=== PATIENT | male | born 1930 | race Caucasian/White ===

== ENCOUNTER → 2017-01-07 | Outpatient (CLI) | payer OTHER ==
[~2017-01-07] MED LIST: /TAMS4CA; /WARF25TA; ACET-654 PO; AMIO400T PO; ASPI1TAB PO; CARD40TA PO; COLA100C2; COMBVENT; DIGO0.12 PO; ELIQ2.5T PO; FURO20TA2 PO; MILKSUS; MIRA3350 PO; MIRALEX; MULTIVIT; NORV5TAB; PRIN5TAB; SIMV80TA; TERA2CAP3 PO; TYLENOL #3; WATETAB PO; saline nasal spray; vitamin d
--- NOTE | 2017-01-07 15:27 | REP ---
CT of the chest without IV contrast: Comparison is 05/28/2014. There is a moderate right pleural effusion, slightly smaller in size than on the comparison study. There is atelectasis of the right lung adjacent to the pleural effusion. There is focal calcified pleural plaque posteromedially in the right upper lobe and there is calcified pleural plaque medially in the superior segment of the left lower lobe. These are unchanged from the prior study. There is a focal noncalcified pleural plaque anterolaterally in the left upper lobe, unchanged. There is a focal noncalcified pleural plaque along the dome of the right hemidiaphragm, unchanged. There is a 4 mm nodule at the inferior tip of the lingula, unchanged. The right and left lobes of the thyroid are enlarged and I suspect there are multiple nodules in both lobes of the thyroid. Thyroid ultrasound could further evaluate. The previous pericardial effusion has resolved. There is a large subcarinal node measuring up to 15 mm short axis (12 mm previously). There is a 19 mm subcapsular cyst laterally in the dome of the liver, unchanged. There is a multilobed cyst inferoanteriorly in the in the right lobe of the liver measuring 6 cm in diameter (5 cm previously). The gallbladder is not visualized. The unenhanced pancreas and spleen are unremarkable. I suspect there is bilateral renal cortical atrophy. There are bilateral renal cortical cysts. No hydronephrosis. Signed by Lui Ho MD 01/07/2017 03:18 P
== END ==
LOC: M RAD 14:22
PROVIDERS: ATTEND Internal Medicine
DX: J84.10 Pulmonary fibrosis, unspecified (principal)

== ENCOUNTER 2017-06-13 10:15 | Emergency (ER) | payer MEDICARE, OTHER ==
[~2017-06-13] VITALS: Ht 175.3 cm; Wt 75.0 kg
[~2017-06-13 10:15] MED LIST changes: -ACET-654 PO; +ACET1TAB17 PO
[2017-06-13] MEDS ORDERED: FLUO10CA9 (10:32)
[2017-06-13] MEDS ORDERED: OXYB5TAB (10:32)
[2017-06-13] MEDS ORDERED: TEMA15CA2 (10:32)
[2017-06-13] MEDS ORDERED: ATOR1TAB19 (10:32)
[2017-06-13] MEDS ORDERED: CALC1CAP31 (10:32)
[2017-06-13 11:07] LABS: BASO % 0.4 % (0.0-1.0); EOS # 0.1 K/mm3 (0.0-0.50); EOS % 2.3 % (0.0-3.0); LARGE UNSTAINED CELL # 0.1 K/mm3 (0.0-0.4); LARGE UNSTAINED CELL % 2.4 % (0.0-4.0); LYMPH # 0.9 K/mm3 (1.5-4.5); LYMPH % 17.3 % (24.0-44.0); MEAN CORPUSCULAR HEMOGLOBIN 31.5 pg (27.0-33.0); MEAN CORPUSCULAR HGB CONC 33.4 g/dl (32.0-36.5); MEAN CORPUSCULAR VOLUME 94.2 fl (80.0-96.0); MONO # 0.3 K/mm3 (0.0-0.8); MONO % 5.5 % (0.0-5.0); NEUTROPHILS # 3.4 K/mm3 (1.8-7.7); PLATELET COUNT, AUTOMATED 159 k/mm3 (150-450); RED CELL DISTRIBUTION WIDTH 14.2 % (11.5-14.5); WHITE BLOOD COUNT 4.7 K/mm3 (4.0-10.0)
--- NOTE | 2017-06-13 11:12 | REP ---
CHEST: AP portable view of the chest is performed and compared to prior study of 01/21/2015. There are chronic pleural and parenchymal opacities on the right which appear essentially unchanged. Interstitial opacities in the left base are unchanged. There is cardiomegaly. There is a calcified tortuous aorta. IMPRESSION: Cardiomegaly and chronic lung opacities with no definite acute changes. Signed by Lui Pinto MD 06/13/2017 01:13 P
[2017-06-13 11:33] LABS: ALBUMIN/GLOBULIN RATIO 0.83 (1.00-1.93); BILIRUBIN,DIRECT 0.4 MG/DL (0.0-0.2); BILIRUBIN,TOTAL 1.1 MG/DL (0.2-1.0); CALCIUM LEVEL 9.2 MG/DL (8.8-10.2); CREATININE FOR GFR 3.55 MG/DL (0.70-1.30); GLOMERULAR FILTRATION RATE 17.5 (>35); TOTAL PROTEIN 6.6 GM/DL (6.4-8.2)
[2017-06-13 11:43] LABS: DIGOXIN LEVEL 0.5 NG/ML (0.5-2.0)
[2017-06-13 12:21] VITALS: BP 127/64
--- NOTE | 2017-06-14 08:56 | ECGEPIP ---
Stationary ECG Study [facility] - ED Test Date: 2017-06-13 Pat Name: SHELLIE GILL Department: Room: - Gender: M Nail Specialist: JT : [id number] Requested By: Anahy Mcmahan Order Number: [id number] Reading MD: Anahy Mcmahan Measurements Intervals [place] Rate: 82 P: [place]: 0 QRS: 46 QRSD: 96 T: 61 QT: 383 QTc: 450 Interpretive Statements ATRIAL FIBRILLATION ABNORMAL RHYTHM ECG [id number] ABNORMALITY DECREASED RATE 05/24/14 Electronically Signed On 06-14-2017 8:56:25 EDT by Anahy Mcmahan
== END 2017-06-13 15:54 | disposition home or self-care (01) ==
LOC: M ED 10:15
DX: R53.81 Other malaise (principal); I51.9 Heart disease, unspecified; I10 Essential (primary) hypertension; I51.7 Cardiomegaly; R94.31 Abnormal electrocardiogram [ECG] [EKG]; Z79.899 Other long term (current) drug therapy; Z88.0 Allergy status to penicillin

== ENCOUNTER → 2017-06-23 | Outpatient (REF) | payer MEDICARE, OTHER ==
[~2017-06-23] MED LIST changes: +ATOR1TAB19; +CALC1CAP31; +FLUO10CA9; +OXYB5TAB; +TEMA15CA2
== END ==
LOC: M LAB REF 13:12
PROVIDERS: ATTEND Internal Medicine Nephrology
DX: I48.2 Chronic atrial fibrillation (principal)

== ENCOUNTER → 2017-07-28 | Outpatient (REF) | payer MEDICARE, OTHER ==
[2017-07-28 15:26] LABS: FREE T4 1.11 NG/DL (0.76-1.46)
== END ==
LOC: M LAB REF 13:52
PROVIDERS: ATTEND Internal Medicine Nephrology
DX: N18.4 Chronic kidney disease, stage 4 (severe) (principal); E04.9 Nontoxic goiter, unspecified

== ENCOUNTER → 2017-10-18 | Outpatient (REF) | payer MEDICARE, OTHER | LOC: M LAB REF 18:54 | PROVIDERS: ATTEND Surgery | DX: D03.59 Melanoma in situ of other part of trunk (principal); C44.622 Squamous cell carcinoma of skin of right upper limb, including shoulder; C44.519 Basal cell carcinoma of skin of other part of trunk ==

== ENCOUNTER → 2017-11-01 | Outpatient (REF) | payer MEDICARE, OTHER | LOC: M LAB REF 18:09 | PROVIDERS: ATTEND Surgery | DX: C44.519 Basal cell carcinoma of skin of other part of trunk (principal) ==

== ENCOUNTER → 2017-11-23 | Outpatient (CLI) | payer MEDICARE, OTHER | LOC: M RAD 08:11 | DX: R94.5 Abnormal results of liver function studies (principal); K76.89 Other specified diseases of liver; N28.1 Cyst of kidney, acquired | CPT/HCPCS: 76705 ==

== ENCOUNTER → 2017-12-01 | Outpatient (REF) | payer MEDICARE, OTHER | LOC: M LAB REF 18:58 | DX: C44.622 Squamous cell carcinoma of skin of right upper limb, including shoulder (principal) | CPT/HCPCS: 88305 ==

== ENCOUNTER → 2018-01-31 | Outpatient (REF) | payer MEDICARE, OTHER | LOC: M LAB REF 16:22 | DX: D48.5 Neoplasm of uncertain behavior of skin (principal) | CPT/HCPCS: 88305 ==

== ENCOUNTER → 2018-02-07 | Outpatient (REF) | payer MEDICARE, OTHER ==
[2018-02-08 12:05] LABS: HEPATITIS B SURFACE ANTIBODY NEGATIVE (POSITIVE)
[2018-02-08 12:07] LABS: HEPATITIS B SURFACE ANTIGEN NEGATIVE (NEGATIVE)
[2018-02-08 12:10] LABS: HEPATITIS C VIRUS ABY INDEX 0.1 INDEX (<0.8)
[2018-02-08 12:12] LABS: HEPATITIS B CORE ANTIBODY IGM NEGATIVE (NEGATIVE)
== END ==
LOC: M LAB REF 17:15
DX: N18.5 Chronic kidney disease, stage 5 (principal)
CPT/HCPCS: 86706

== ENCOUNTER → 2018-08-07 | Outpatient (CLI) | payer MEDICARE, OTHER | LOC: M SMT 14:36 | DX: J90 Pleural effusion, not elsewhere classified (principal); I51.7 Cardiomegaly | CPT/HCPCS: 71046 ==

== ENCOUNTER → 2018-10-11 | Outpatient (REF) | payer MEDICARE, OTHER ==
[2018-10-13 09:37] LABS: HEPATITIS B CORE ANTIBODY IGM NEGATIVE (NEGATIVE); HEPATITIS B SURFACE ANTIBODY NEGATIVE (POSITIVE); HEPATITIS B SURFACE ANTIGEN NEGATIVE (NEGATIVE); HEPATITIS C VIRUS ABY INDEX 0.1 INDEX (<0.8)
== END ==
LOC: M LAB REF 16:47
DX: N18.5 Chronic kidney disease, stage 5 (principal)
CPT/HCPCS: 86706

== ENCOUNTER 2019-04-23 09:08 | Day surgery (SDC) | payer MEDICARE, OTHER ==
[~2019-04-23] VITALS: Ht 172.7 cm; Wt 74.8 kg
[~2019-04-23 09:08] MED LIST changes: -/TAMS4CA; -/WARF25TA; -ACET1TAB17 PO; +ACET1TAB55 PO; -AMIO400T PO; +AMIO400T7 PO; -ASPI1TAB PO; +ASPI81TA26 PO; +CLINDAMYCIN 300 MG in APPROPRIATE DILUENT 1 EA IV ONE; +COQ-100C5 PO; +COUM1TAB18; +DILT30TA PO; +FISH1000 PO; +FLOM0.4C39; +ICAPTAB PO; +LIDOCAINE 1% MDV 20ML VIAL SQ PRN; +LR 1,000 ML IV ONE
[2019-04-23] MEDS ORDERED: BACITRACIN OINT 30GM As Ordered ONE (10:47)
[2019-04-23] MEDS ORDERED: LIDOCAINE W/EPINEPHRINE 1% 20ML VIAL As Ordered ONE (10:47)
[2019-04-23] MEDS ORDERED: LIDOCAINE 2% W/EPIN INJ 20ML **PRES FREE As Ordered ONE (10:47)
[2019-04-23] MEDS ORDERED: PROPOFOL 200 MG/20 ML VIAL As Ordered ONE (11:12)
[2019-04-23] MEDS ORDERED: fentaNYL 100 MCG/2 ML INJECTION (J3010) As Ordered ONE (11:12)
[2019-04-23] MEDS ORDERED: ePHEDrine SULFATE 25 MG/5 ML(5MG/ML) SYRINGE As Ordered ONE (11:27)
[2019-04-23] MEDS ORDERED: PHENYLephrine HCL 500 MCG/5 ML (100MCG/ML) SYRINGE (J2370) As Ordered ONE ×2 (11:34→12:10)
--- NOTE | 2019-04-23 12:59 | POST-OPPD ---
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 Open wound after excision with margins 2.6x3cm PROCEDURE: Excision left hand malignant lesion with rhomboid flap closure. SURGEON: Dr Tanner ANESTHESIA: Local with sedation SPECIMENS: 1. Left hand malignant lesion FS. 2. additional deep margin 12-3 o'clock, 3. additional deep margin 3-6 o'clock ESTIMATED BLOOD LOSS: 5cc REPLACED: none DRAINS: none COMPLICATIONS: none POSTOPERATIVE CONDITION: stable Dict: [id number] ROSMERY TANNER DO Apr 23, 2019 12:59
[2019-04-23] MEDS ORDERED: LR 1,000 ML IV SCH (13:15)
[2019-04-23] MEDS ORDERED: fentaNYL 100 MCG/2 ML INJECTION (J3010) IV PRN (13:15)
[2019-04-23] MEDS ORDERED: PROMETHAZINE INJ 25 MG/ML VIAL (J2550) IV PRN (13:15)
[2019-04-23] MEDS ORDERED: METOCLOPRAMIDE INJ 10MG/2ML VIAL (J2765) IV PRN (13:15)
[2019-04-23 13:25] VITALS: BP 112/66
--- NOTE | 2019-04-23 14:56 | RO ---
DATE OF OPERATION: 04/23/2019 PREOPERATIVE DIAGNOSIS: Left hand malignant lesion. POSTOPERATIVE DIAGNOSIS: Left hand malignant lesion. PROCEDURE: Excision of left hand malignant lesion with rhomboid flap closure. ATTENDING SURGEON: Adriana Nieves DO ANESTHESIA: Local with sedation. SPECIMENS SENT: 1. Left hand malignant lesion, frozen section, sutures marking 12 o'clock, which is the proximal end. 2. Additional deep margins from 12 to 3 o'clock and additional margins from 3 to 6 o'clock. BLOOD LOSS: 5 mL. No blood replacements needed. No complications. DESCRIPTION OF PROCEDURE: This is an 88-year-old male who has fairly rapidly growing fixed lesion on the dorsum of his left hand. It is located about 3 cm proximal to his 3rd metacarpophalangeal joint on the dorsum of the hand. The lesion is tender. It is easily friable. 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 The patient is scheduled for formal excision with frozen section, margins, and complex closure. All the risks and benefits and alternatives discussed with the patient at length, and he is ready to proceed. DESCRIPTION OF PROCEDURE: On the day of surgery, he was presented to the operating room, placed in supine position. Sequentials placed on the lower calves. Preoperative antibiotics are given. He was prepped and draped in the usual sterile fashion. 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 So, no pressure was pressed on that left arm at any time. We started our procedure by giving the patient a touch of sedation, and then 2% lidocaine with epinephrine was infiltrated in the area. 6-mm margins were outlined from the lesion, measures 1.5 x 1.4 cm in diameter. 6-mm margins were outlined, and an elliptical incision was carried out using a #10 blade. A suture was marked at 12 o'clock on the specimen, which is the proximal end of the specimen. Then it was sent to pathology. We had to do additional deep margins from 12 to 3 and 3 to 6 that were sent as a permanent. So, a full-thickness excision was carried out, including the superficial veins that were in that segment that was also ligated and sent with the pathology. All tendons visible were examined and in good working condition and had good vasculature. The wounds re-measured and at this point it is 2.6 x 3 cm. There is not enough tissue to do a primary closure, so the rhomboid flap was designed and elevated, and then the wound was set in place, and closed in multiple layers with 5-0 Vicryl, 4-0 Monocryl sutures, and the 5-0 plain gut suture. Xeroform bulky dressing and a volar splint were placed. The patient tolerated the procedure very well without any complications and difficulties, and he transferred to the recovery room in stable condition. SUSANA
== END 2019-04-23 13:45 | disposition home or self-care (01) ==
LOC: M SDC 09:08
PROVIDERS: ATTEND Plastic Surgery Surgery of the Hand
DX: C44.629 Squamous cell carcinoma of skin of left upper limb, including shoulder (principal); I48.91 Unspecified atrial fibrillation; I12.9 Hypertensive chronic kidney disease with stage 1 through stage 4 chronic kidney disease, or unspecified chronic kidney disease; Z88.0 Allergy status to penicillin; Z87.891 Personal history of nicotine dependence; Z79.01 Long term (current) use of anticoagulants; Z79.899 Other long term (current) drug therapy; J44.9 Chronic obstructive pulmonary disease, unspecified; N18.9 Chronic kidney disease, unspecified
CPT/HCPCS: 14040; 36415; 84132; 88305; 88331; J2370; J3010

== ENCOUNTER → 2019-06-27 | Outpatient (CLI) | payer MEDICARE, OTHER ==
[~2019-06-27] MED LIST changes: +BUPIVACAINE HCL 0.5% 10 ML VIAL As Ordered ONE; -CLINDAMYCIN 300 MG in APPROPRIATE DILUENT 1 EA IV ONE; +ISOVUE-300 61% 50ML VIAL (Q9967) As Ordered ONE; -LIDOCAINE 1% MDV 20ML VIAL SQ PRN; +LIDOCAINE 2% MDV 20 ML VIAL As Ordered ONE; -LR 1,000 ML IV ONE; +MIDAZOLAM INJ 2 MG/2 ML VIAL (J2250) As Ordered ONE; -OXYB5TAB; +OXYB5TAB2; +diphenhydrAMINE INJ 50MG/ML VIAL (J1200) As Ordered ONE; +fentaNYL 100 MCG/2 ML INJECTION (J3010) As Ordered ONE
[2019-06-27 11:25] VITALS: BP 106/61
--- NOTE | 2019-07-06 08:28 | REPIR ---
DATE OF PROCEDURE: 06/27/2019 ATTENDING SURGEON: Dr. Syed Tran LIME FILTER OPERATOR: Emeli Yoo and Hien Nugent PREOPERATIVE DIAGNOSES: End-stage renal disease. Dysfunctional left brachiocephalic arteriovenous fistula. POSTOPERATIVE DIAGNOSES: End-stage renal disease. Dysfunctional left brachiocephalic arteriovenous fistula. PROCEDURE: Left brachiocephalic arteriovenous fistulogram. Retrograde left brachial artery angiogram. Left cephalic vein angioplasty with a 10 x 8 balloon. INDICATION: Patient is an 88-year-old male who underwent creation of a left brachiocephalic arteriovenous fistula which has been non maturing. The patient will undergo fistulogram with possible angioplasty, stent and/or atherectomy. Risks, benefits and alternative treatment options were discussed with the patient. ANESTHESIA: Local with sedation 1 mg Versed, 50 mcg of fentanyl and 3 mL of 2% lidocaine mixed 0.5% Marcaine, Benadryl 50 mg. FLUORO TIME: 0.2 minutes. CONTRAST: 3 mL. SEDATION TIME: 10:51 a.m. to 11:12 a.m. for a total of 21 minutes. COMPLICATIONS: None. DRAINS: None. SPECIMENS: None. IMPLANTS: None. PROCEDURE: Patient was taken to the angiography suite, placed supine on the angiography room table, and then prepped and draped in a standard surgical fashion. The left brachiocephalic arteriovenous fistulas cannulated with a micropuncture needle. A fistulogram was performed showing stenosis in the cephalic vein. The cephalic vein was then angioplastied with a 10 x 8 balloon during which time a retrograde left brachial artery angiogram was performed showing no intervention was required. Completion fistulogram showed resolution of the stenosis with excellent flow through the fistula. Catheters and wires were removed. The sheath was removed and a #2-0 Prolene suture placed at the puncture site for hemostasis. Dressings were then applied. The patient tolerated the procedure well. All instrument, sponge and needle counts were correct at the end of the case. There were no complications. Dr. Tran was present for and directed the entire case. The patient was transferred to the [facility] and subsequently discharged in stable condition.
== END ==
LOC: M IRPRO 10:14
PROVIDERS: ATTEND Surgery Vascular Surgery
DX: T82.898A Other specified complication of vascular prosthetic devices, implants and grafts, initial encounter (principal); N18.6 End stage renal disease; I48.91 Unspecified atrial fibrillation; E78.00 Pure hypercholesterolemia, unspecified; I25.10 Atherosclerotic heart disease of native coronary artery without angina pectoris; Z79.01 Long term (current) use of anticoagulants; J44.9 Chronic obstructive pulmonary disease, unspecified; X58.XXXA Exposure to other specified factors, initial encounter; Y93.9 Activity, unspecified; Y92.9 Unspecified place or not applicable; Y99.9 Unspecified external cause status
CPT/HCPCS: 36902; C1725; C1769; C1894; J1200; J2250; J3010; Q9967

== ENCOUNTER 2019-09-13 13:39 | Emergency (ER) | payer MEDICARE, OTHER ==
[~2019-09-13] VITALS: Ht 172.7 cm; Wt 75.6 kg
[~2019-09-13 13:39] MED LIST changes: -BUPIVACAINE HCL 0.5% 10 ML VIAL As Ordered ONE; -ISOVUE-300 61% 50ML VIAL (Q9967) As Ordered ONE; -LIDOCAINE 2% MDV 20 ML VIAL As Ordered ONE; -MIDAZOLAM INJ 2 MG/2 ML VIAL (J2250) As Ordered ONE; -diphenhydrAMINE INJ 50MG/ML VIAL (J1200) As Ordered ONE; -fentaNYL 100 MCG/2 ML INJECTION (J3010) As Ordered ONE
[2019-09-13 16:16] LABS: BASO % 0.4 % (0.0-1.0); EOS # 0.1 10^3/uL (0.0-0.5); EOS % 1.1 % (0.0-3.0); HEMATOCRIT 40.1 % (42.0-52.0); HEMOGLOBIN 13.1 g/dl (13.5-17.5); LYMPH # 1.1 10^3/uL (1.5-5.0); LYMPH % 15.5 % (24.0-44.0); MEAN CORPUSCULAR HGB CONC 32.7 g/dl (32.0-36.5); MONO # 0.7 10^3/uL (0.0-0.8); MONO % 9.1 % (0.0-5.0); NEUTROPHILS # 5.2 10^3/uL (1.5-8.5); NEUTROPHILS % 73.6 % (36.0-66.0); PLATELET COUNT, AUTOMATED 142 10^3/uL (150-450); RED BLOOD COUNT 3.97 10^6/uL (4.30-6.10); WHITE BLOOD COUNT 7.1 10^3/uL (4.0-10.0)
[2019-09-13 16:44] LABS: ALBUMIN 3.2 GM/DL (3.2-5.2); BILIRUBIN,DIRECT 0.4 MG/DL (0.0-0.2); BILIRUBIN,TOTAL 1.1 MG/DL (0.2-1.0); CALCIUM LEVEL 9.1 MG/DL (8.8-10.2); CREATININE FOR GFR 4.68 MG/DL (0.70-1.30); GLOMERULAR FILTRATION RATE 12.6 (>35); POTASSIUM SERUM 4.4 MEQ/L (3.5-5.1); TOTAL PROTEIN 7.4 GM/DL (6.4-8.2)
[2019-09-13 19:00] VITALS: BP 169/87
--- NOTE | 2019-09-13 19:14 | REP ---
Three-view sacrum/coccyx: 09/13/2019. Indication: Sacral coccygeal pain. Comparison: None. Findings: There is no evidence of acute fracture, subluxation or dislocation. No acute soft tissue abnormalities are detected. Impression: No acute fracture. Electronically Signed by Murali Chavarria DO 09/13/2019 07:05 P
== END 2019-09-13 19:07 | disposition home or self-care (01) ==
LOC: M ED 13:39
DX: K59.00 Constipation, unspecified (principal); K62.89 Other specified diseases of anus and rectum; N18.9 Chronic kidney disease, unspecified; I48.91 Unspecified atrial fibrillation; E78.5 Hyperlipidemia, unspecified; D64.9 Anemia, unspecified; J61 Pneumoconiosis due to asbestos and other mineral fibers; J44.9 Chronic obstructive pulmonary disease, unspecified; Z99.2 Dependence on renal dialysis; Z87.2 Personal history of diseases of the skin and subcutaneous tissue; Z87.891 Personal history of nicotine dependence; Z88.0 Allergy status to penicillin; Z79.899 Other long term (current) drug therapy

== ENCOUNTER 2020-01-18 08:15 | Inpatient (IN) | payer MEDICARE, OTHER ==
[~2020-01-18] VITALS: Ht 172.7 cm; Wt 74.5 kg
[~2020-01-18 08:15] MED LIST changes: +DIGO0.123 PO; +OXYB-54; -OXYB5TAB2
[2020-01-18] MEDS ORDERED: ONDANSETRON 4MG/2ML VIAL (J2405) IV ONE (08:45)
[2020-01-18] MEDS: MORPHINE 4 MG/ML 1ML VIAL/SYRINGE (J2270) IV PRN (09:09)
[2020-01-18 09:25] LABS: INR 1.04; PROTHROMBIN TIME 13.4 SECONDS (11.8-14.0)
[2020-01-18] MEDS ORDERED: ISOVUE-370 76% 100ML VIAL (Q9967) As Ordered ONE (09:26)
[2020-01-18 09:28] LABS: BASO % 0.4 % (0.0-1.0); HEMATOCRIT 37.8 % (42.0-52.0); HEMOGLOBIN 12.5 g/dl (13.5-17.5); LYMPH % 3.4 % (24.0-44.0); MEAN CORPUSCULAR HGB CONC 33.1 g/dl (32.0-36.5); MEAN CORPUSCULAR VOLUME 96.7 fl (80.0-96.0); MONO # 0.2 10^3/uL (0.0-0.8); MONO % 3.2 % (0.0-5.0); NEUTROPHILS % 92.6 % (36.0-66.0); PLATELET COUNT, AUTOMATED 123 10^3/uL (150-450); RED BLOOD COUNT 3.91 10^6/uL (4.30-6.10); WHITE BLOOD COUNT 5.4 10^3/uL (4.0-10.0)
[2020-01-18 09:46] LABS: LYMPH # 0.2 10^3/uL (1.5-5.0)
[2020-01-18 09:59] LABS: ALBUMIN 3.2 GM/DL (3.2-5.2); BILIRUBIN,DIRECT 0.4 MG/DL (0.0-0.2); CK-MB VALUE MASS 2.3 NG/ML (<3.6); DIGOXIN LEVEL 0.8 NG/ML (0.5-2.0); MB/CK RELATIVE INDEX 2.37 (< OR =4); TOTAL PROTEIN 6.6 GM/DL (6.4-8.2); TROPONIN I 0.02 NG/ML (< 0.10)
--- NOTE | 2020-01-18 11:22 | REP ---
CT abdomen and pelvis with IV but without oral contrast: History: Abdomen pain. Dialysis patient. Left upper quadrant pain. Comparison chest CT images January 07, 2017. CT contrast dose: 100 ml of intravenous Isovue 370 is administered. Findings: Preliminary digital power truck driver radiograph demonstrates an unremarkable bowel gas pattern. There is chronic pleural thickening anteriorly and posteriorly and inferiorly in the right chest with pleural enhancement. There is a small right pleural effusion posteriorly. There is some pleural calcification as well. This is similar in appearance to the January 07, [address] There is a very small quantity of left pleural fluid which is a new finding. Cardiomegaly is observed. Mitral annular calcification is seen. Coronary artery calcification is noted. Central pulmonary arteries are prominent question pulmonary arterial hypertension. Descending aorta is quite tortuous but not aneurysmal. There is a 4.1 cm cyst in the left lobe of the liver. This is decreased in size from 2017 prior study. Gallbladder surgically absent. There is mild to moderate biliary ductal dilation. There are two large calcified common bile duct stones. The most distal of these is the smaller choledocholiths. This measures 11 mm in greatest diameter. Above this in the common bile duct there is a calcified choledocholiths measuring 19 mm in diameter. No pancreatic cyst or mass is seen. The [place] kidneys are markedly atrophic and contain a few cysts. No hydronephrosis or masses seen. No aortic aneurysm is seen. No retroperitoneal mass or adenopathy seen. The spleen is unremarkable. Small and large intestinal bowel loops are normal in the abdomen. Pelvic CT images demonstrate advanced diverticulosis of the sigmoid colon. There is no CT evidence of diverticulitis. No evidence of free air or ascites is seen. Prostate and seminal vesicles are intact. There are bilateral bladder diverticula, left larger than right. No abdominal wall defect is seen. Impression: 1. Status post cholecystectomy. There are two large calcific stones in the common bile duct producing mild to moderate biliary ductal dilation. 2. Small cyst left lobe of the liver. 3. Significant atrophy of the [place] kidneys bilaterally. 4. Chronic pleural thickening and fluid on the right. Very small new left pleural effusion. Electronically Signed by Daljit Guadalupe MD 01/18/2020 11:14 A
--- NOTE | 2020-01-18 12:27 | HPEPDOC ---
[facility] Medical History & Physical Date of Admission Jan 18, 2020 Date of Service: Jan 18, 2020 Attending Physician: CHARMAINE CHOWDHURY MD History and Physical CHIEF COMPLAINT: Abdominal pain HISTORY OF PRESENT ILLNESS: 89-year-old male with past medical history of hypertension, end-stage renal disease on hemodialysis Tuesday, and Tuesday, atrial fibrillation on Eliquis and coronary artery disease presents from home with abdominal pain since last night. Patient reports feeling well up until then, started having right upper quadrant, epigastric and left upper quadrant abdominal pain. He received morphine in the ED and is comfortable at this time, not having any abdominal pain at this time, asymptomatic. He denies any associated nausea, vomiting, diarrhea or constipation. Imaging in the ED shows 2 large stones in the common bile duct causing obstruction, history of cholecystectomy. Patient denies any shortness of breath, chest pain or headache. 10 point review of system is negative except for above PAST MEDICAL HISTORY: 1. End-stage renal disease. 2. Atrial fibrillation. 3. Coronary artery disease. 4. Hypertension PAST SURGICAL HISTORY: 1. Cholecystectomy. 2. Hip surgery. SOCIAL HISTORY: Previous smoker, quit 40 years ago, smoked 1 pack per day for 20 years. Denies alcohol use denies drug use FAMILY HISTORY: Both parents of MS ALLERGIES: Please see below. HOME MEDICATIONS: Please see below. PHYSICAL EXAMINATION: VITAL SIGNS: Please see below. GENERAL: No distress HEENT: Normocephalic, atraumatic, moist mucous membranes NECK: Supple CARDIOVASCULAR EXAMINATION: Irregularly irregular, tachycardic, systolic murmur appreciated RESPIRATORY EXAMINATION: Clear to auscultation, no wheezing ABDOMINAL EXAMINATION: Soft, nontender, nondistended, positive bowel sounds EXTREMITIES: Left upper extremity AV fistula SKIN: No rash NEUROLOGICAL EXAMINATION: Alert and oriented 3, no focal deficits PSYCHIATRIC EXAMINATION: Calm and cooperative LABORATORY DATA: See below. IMAGING: CT abdomen and pelvis showing 2 large stones causing common bile duct obstruction MICROBIOLOGY: Please see below. ASSESSMENT: 89-year-old male with past medical history of atrial fibrillation, end-stage renal disease on hemodialysis, hypertension and coronary artery disease is being admitted for choledocholithiasis. PLAN: 1. Choledocholithiasis. History of cholecystectomy, 2 large stones in the common bile duct, gastroenterology consulted for possible ERCP, nothing by mouth, pain control. 2. Atrial fibrillation. Hold Eliquis, continue digoxin 3. End-stage renal disease. On dialysis Tuesday, , Tuesday, missed yesterday's dialysis due to the weather, nephrology consulted, plan for hemodialysis tomorrow, no emergent need for hemodialysis today. DVT prophylaxis: SCDs. GI prophylaxis: Not needed Vital Signs Vital Signs Date Time Temp Pulse Resp B/P (MAP) Pulse Ox O2 Delivery O2 Flow Rate FiO2 01/18/20 12:00 85 20 122/59 (80) 95 Room Air 01/18/20 08:32 98.2 Laboratory Data Labs 24H Laboratory Tests 2 01/18/20 08:45: Immature Granulocyte % (Auto) 0.4, Neutrophils (%) (Auto) 92.6H, Lymphocytes (%) (Auto) 3.4L, Monocytes (%) (Auto) 3.2, Eosinophils (%) (Auto) 0.0, Basophils (%) (Auto) 0.4, Neutrophils # (Auto) 5.0, Lymphocytes # (Auto) 0.2L, Monocytes # (Auto) 0.2, Eosinophils # (Auto) 0.0, Basophils # (Auto) 0.0, Nucleated Red Blo od Cells % (auto) 0.0, Prothrombin Time 13.4, Prothromb Time International Ratio 1.04, Lactic Acid Level 2.2*H, Total Bilirubin 1.0, Direct Bilirubin 0.4H, Aspartate Amino Transf (AST/SGOT) 118H, Alanine Aminotransferase (ALT/SGPT) 160H, Alkaline Phosphatase 302H, Total Creatine Kinase 97, Creatine Kinase MB 2.3, Creatine Kinase MB Relative Index 2.37, Troponin I 0.02, Total Protein 6.6, Albumin 3.2, Albumin/Globulin Ratio 0.94L, Lipase 176, Digoxin Level 0.8 01/18/20 08:53: POC Glucose (Misc Panel) 116H, POC Sodium (Misc Panel) 137, POC Potassium (Misc Panel) 5.3H, POC Chloride (Misc Panel) 103, POC Total CO2 (Misc Panel) 25.0, POC Blood Urea Nitrogen (Misc Panel 45H, POC Ionized Calcium (Misc Panel) 4.1L, POC Creatinine (Misc Panel) 6.4H, POC Hematocrit (Misc Panel) 38.0 CBC/BMP Laboratory Tests 01/18/20 08:45 Microbiology Microbiology 01/18/20 Blood Culture, Received Pending 01/18/20 Blood Culture, Received Pending Home Medications Scheduled Apixaban (Eliquis) 2.5 Mg Tab, 2.5 MG PO BID Digoxin (Digoxin) 125 Mcg Tablet, 125 MCG PO 3XW EVERY M/W/F [place]-3 Fatty Acids/Fish Oil (Fish Oil 1,000 mg Capsule) 1 Each Capsule, 1,000 MG PO DAILY Ubidecarenone (Coq-10) 100 Mg Capsule, 100 MG PO DAILY Vit A/Vit C/Vit E/Zinc/Copper (Icaps Areds Formula Dr Tablet) 1 Each Tablet.dr, 1 TAB PO DAILY Scheduled PRN Acetaminophen (Acetaminophen) 325 Mg Tab, 650 MG PO Q4HP PRN for MILD PAIN OR FEVER Allergies Coded Allergies: Penicillins (Verified Allergy, Severe, neck swelling, can't breathe, 04/19/19) A-FIB/CHADSVASC A-FIB History Current/History of A-Fib/PAF?: Yes Current PO Anticoag Therapy: Yes CHARMAINE CHOWDHURY MD Jan 18, 2020 12:27
[2020-01-18] MEDS ORDERED: ACET25TA12 PO (12:36)
[2020-01-18 14:30] VITALS: BP 167/74
--- NOTE | 2020-01-18 19:55 | ECHO ---
DATE OF PROCEDURE: 01/18/2020 REFERRING PHYSICIAN: Dr. Monson INDICATION: Congestive heart failure. HEIGHT: 173 cm WEIGHT: 75 kg DIMENSIONS IVS: 1.2 LV: 3.9 LVPW: 1.2 LA: 4.5 Aorta: 3.6 Mitral E wave velocity: averaging around 120 E prime septal: 6.4 E prime lateral: 7.2 FINDINGS The study is of fair technical quality. The patient is in atrial fibrillation with controlled rate. Left ventricle is normal size and has grossly normal systolic function, I estimate ejection fraction (EF) around 55-60%. Mild left ventricular hypertrophy (LVH) is noted. Right ventricle was poorly visualized but grossly appears normal. Both atria are enlarged. Aortic valve is calcific and there is sclerosis of the leaflets. Mobility appears to be minimally limited based on poor quality views. There are also degenerative abnormalities of mitral valve with thickening of mitral leaflets and mitral annular calcifications but mobility of leaflets is preserved. Tricuspid valve appears normal. Pulmonic valve also appears grossly normal. There is no pericardial effusion. Inferior vena cava was not visualized. Aortic root is on upper limits of normal size. Aortic arch and abdominal aorta were not well seen. Doppler interrogation of aortic valve reveals no significant stenosis or insufficiency. Same applies for mitral valve. There is trace tricuspid insufficiency. Calculated pulmonary artery pressure is in 40s corresponding to moderate pulmonary hypertension. Evaluation of diastolic function is inconclusive due to underlying atrial fibrillation. CONCLUSION 1. Study is fair technical quality, the patient is in atrial fibrillation with controlled rate. 2. Normal left ventricle (LV) size with mild LVH and preserved LV systolic function. 3. Aortic sclerosis but no significant stenosis or insufficiency. 5. Degenerative abnormalities of mitral valve but again no stenosis or insufficiency. 6. Unable to estimate central venous pressure. 7. At least moderate pulmonary hypertension. COMMENT Subacute bacterial endocarditis (SBE) prophylaxis is not recommended.
[2020-01-18] MEDS ORDERED: ACETAMINOPHEN TAB 650MG DOSE (2X325MG) PO PRN (20:15)
--- NOTE | 2020-01-18 20:36 | CR.PDOC ---
General Date of Consultation: Jan 18, 2020 Referring Provider: CHARMAINE CHOWDHURY MD Attending Physician: JOSIANE MALIK MD Consultation Primary physician/ hospitalist: Charmaine Cesar Reason for consult: CT scan abdomen showing CBD stones HPI: 89-year-old male patient with HTN, ESRD on HD ( TTS, though left arm AVF), CAD, Atrial fibrillation on Eliquis ( last dose on ), prior cholecystectomy around 12 years ago, chronic back pain with prior vertebral fractures ( as per patient) was admitted to [facility] for acute onset abdominal pain. Patient is noted to have calcified CBD stonesidentified on CT abdomen done in ER and GI was consulted for the same. Patient on exam on floor denies any active symptoms but reports his symptoms start at 2AM with acute onset left sided abdominal pain, which was very severe, constant pain, lasted until he came to ER and got pain medications. Patient also reports intermittent abdominal pain in rest of the abdomen ( nothing specific site he can remember) and associated with abdominal bloating. Patient denies having nausea, vomiting, diarrhea or constipation. Pertinent negative GI symptoms: Patient denies fever, sick contacts, recent travel, nausea, vomiting, diarrhea, loss of appetite, early satiety or unintentional weight loss. No history of hematemesis, melena or hematochezia. Patient reports regular bowel movements. Review of Systems: GI: as stated above CVS: No chest pain, No palpitations, No leg swelling. RS: No Shortness of breath, No Wheezing, no cough HIM SPECIALIST: No dizziness, No motor weakness, No sensory problems Hematology: No bruising, No gum bleeding, Musculoskeletal: No joint pain, ambulating well. Skin: No rash : No hematuria, No burning sensation of the urine ENT: No ear discharge/ pain, No dysphagia. Eyes: No photophobia. Jaundice Home medications: reviewed. Antithrombotic agents Eliquis ( last took on ). Medical h/o: As above. Surgical h/o: Laparoscopic cholecystectomy many years ago. Social h/o: Alcohol social, smoking denies, IVDA/ drugs denies . Family h/o of GI cancers - None Prior Endoscopies: None. Prior GI evaluations: None in [facility]. Exam: Vitals: reviewed General: Alert and oriented x 3, not in distress HEENT: No pallor, no icterus. Normal oropharynx, NO cervical lymph nodes. Chest: symmetric with bilateral clear air entry, CVS: S1, S2 heard, normal, no murmurs . Abdomen: non-distended, no surgical scars, soft, non-tender, no palpable masses, normal bowel sounds heard. Rectal exam: Patient refused / Deferred at this time in view of scheduled colonoscopy. Extremities: no pedal edema, pulses palpable. HIM SPECIALIST: no focal motor or sensory deficits. Moves all extremities Skin: no rash. Labs: reviewed. Imaging: reviewed. Impression: - Acute onset left sided abdominal pain unrelated to meals and no associated nausea or vomiting likely musculoskeletal or neuropathic due to chronic back issues. - Intermittent abdominal bloating and right sided abdominal pain and abdominal imaging showing calcified CBD stones and labs showing elevated ALP Needs further management. Recommendations: - Patient educated about the test results, possible differential diagnoses and All questions answered. - Further evaluation and management of left sided abdominal pain as per primary team as it might be unrelated to CBD stones. - As the large CBD stones does show features of biliary obstruction , and also future risk of cholangitis, patient is recommended ERCP. - The procedure, indications, risks (acute pancreatitis, its complications, bleeding, perforation, infection, hypotension, respiratory depression, allergy, need for endotracheal intubation, surgery, colostomy, cardiac arrest, even ), benefits, limitations (e.g., missing a lesion), and all other alternatives (including no intervention) were explained to the patient who understood and agreed for the procedure. Printed material also provided to review. - IN view of dialysis and use of eliquis, patient is educated about the elevated risks. - Will need to review with Auto Radiator Specialist to appropriately time the ERCP procedure. Would consider doing the procedure after atleast 3 days OFF eliquis and on post dialysis day. - If not contraindicated, please consider holding eliquis at this time. Plan of care discussed with patient and primary team. Patient verbalized understanding and agreed with the plan. Vital Signs/I&O Vital Signs Date Time Temp Pulse Resp B/P (MAP) Pulse Ox O2 Delivery O2 Flow Rate FiO2 01/18/20 14:30 98.8 98 17 167/74 (105) 100 01/18/20 13:15 Room Air Laboratory Data Labs 24H Laboratory Tests 2 01/18/20 08:45: Immature Granulocyte % (Auto) 0.4, Neutrophils (%) (Auto) 92.6H, Lymphocytes (%) (Auto) 3.4L, Monocytes (%) (Auto) 3.2, Eosinophils (%) (Auto) 0.0, Basophils (%) (Auto) 0.4, Neutrophils # (Auto) 5.0, Lymphocytes # (Auto) 0.2L, Monocytes # (Auto) 0.2, Eosinophils # (Auto) 0.0, Basophils # (Auto) 0.0, Nucleated Red Blood Cells % (auto) 0.0, Prothrombin Time 13.4, Prothromb Time International Ratio 1.04, Lactic Acid Level 2.2*H, Total Bilirubin 1.0, Direct Bilirubin 0.4H, Aspartate Amino Transf (AST/SGOT) 118H, Alanine Aminotransferase (ALT/SGPT) 160H, Alkaline Phosphatase 302H, Total Creatine Kinase 97, Creatine Kinase MB 2.3, Creatine Kinase MB Relative Index 2.37, Troponin I 0.02, Total Protein 6.6, Albumin 3.2, Albumin/Globulin Ratio 0.94L, Lipase 176, Digoxin Level 0.8 01/18/20 08:53: POC Glucose (Misc Panel) 116H, POC Sodium (Misc Panel) 137, POC Potassium (Misc Panel) 5.3H, POC Chloride (Misc Panel) 103, POC Total CO2 (Misc Panel) 25.0, POC Blood Urea Nitrogen (Misc Panel 45H, POC Ionized Calcium (Misc Panel) 4.1L, POC Creatinine (Misc Panel) 6.4H, POC Hematocrit (Misc Panel) 38.0 01/18/20 13:19: Lactic Acid Followup at 4 Hours 1.0 CBC/BMP Laboratory Tests 01/18/20 08:45 Microbiology Microbiology 01/18/20 Blood Culture, Received Pending 01/18/20 Blood Culture, Received Pending Allergies Coded Allergies: Penicillins (Verified Allergy, Severe, neck swelling, can't breathe, 04/19/19) Home Medications Scheduled Apixaban (Eliquis) 2.5 Mg Tab, 2.5 MG PO BID, (Reported) Digoxin (Digoxin) 125 Mcg Tablet, 125 MCG PO 3XW, (Reported) EVERY M/W/F Ubidecarenone (Coq-10) 100 Mg Capsule, 100 MG PO DAILY, (Reported) Vit A/Vit C/Vit E/Zinc/Copper (Icaps Areds Formula Dr Tablet) 1 Each Tablet.dr, 1 TAB PO DAILY, (Reported) Scheduled PRN Acetaminophen (Acetaminophen) 325 Mg Tab, 650 MG PO Q4HP PRN for PAIN, (Reported) Acetaminophen/Diphenhydramine (Acetaminophen Pm Caplet) 1 Each Tablet, 1 TAB PO QHS PRN for SLEEP, (Reported) JOSIANE MALIK MD Jan 18, 2020 20:35
[2020-01-18 22:00] VITALS: BP 103/70
[2020-01-18] MEDS: DIGOXIN 0.125 MG TAB PO SCH (22:54)
[2020-01-19 06:00] VITALS: BP 114/68
[2020-01-19 06:37] LABS: HEMATOCRIT 36.6 % (42.0-52.0); HEMOGLOBIN 11.8 g/dl (13.5-17.5); MEAN CORPUSCULAR HEMOGLOBIN 32.9 pg (27.0-33.0); MEAN CORPUSCULAR HGB CONC 32.2 g/dl (32.0-36.5); MEAN CORPUSCULAR VOLUME 101.9 fl (80.0-96.0); PLATELET COUNT, AUTOMATED 139 10^3/uL (150-450); RED BLOOD COUNT 3.59 10^6/uL (4.30-6.10); WHITE BLOOD COUNT 4.8 10^3/uL (4.0-10.0)
[2020-01-19 06:53] LABS: ALBUMIN 2.8 GM/DL (3.2-5.2); BILIRUBIN,TOTAL 0.8 MG/DL (0.2-1.0); CALCIUM LEVEL 8.2 MG/DL (8.8-10.2); CREATININE FOR GFR 6.2 MG/DL (0.70-1.30); GLOMERULAR FILTRATION RATE 9.1 (>35); MAGNESIUM LEVEL 2.2 MG/DL (1.8-2.4); POTASSIUM SERUM 5.1 MEQ/L (3.5-5.1); TOTAL PROTEIN 6.5 GM/DL (6.4-8.2)
--- NOTE | 2020-01-19 07:16 | ECGEPIP ---
[facility] - ED Test Date: 2020-01-18 Pat Name: SHELLIE GILL Department: Room: [place] [address] Gender: Male Eligibility Clerk: SAUL : [id number] Requested By: Anahy Mcmahan Order Number: [id number] Reading MD: Anahy Mcmahan Measurements Intervals [place] Rate: 91 P: DC: 0 QRS: 48 QRSD: 92 T: 45 QT: 353 QTc: 435 Interpretive Statements ATRIAL FIBRILLATION MODERATE ST DEPRESSION INCREASED RATE 06/13/17 Electronically Signed on 01-19-2020 7:16:02 EST by Anahy Mcmahan
[2020-01-19] MEDS ORDERED: HEPARIN 1,000 UNITS/ML 10ML VIAL (FOR RADIOLOGY& DIALYSIS ONLY)(J1644-10) IV ONE (12:45)
[2020-01-19] MEDS ORDERED: LIDOCAINE 1% SDV 5 ML VIAL SQ ONE (12:45)
[2020-01-19 14:00] VITALS: BP 113/64
[2020-01-19] MEDS: MOM 30ML SUSPENSION UDC PO PRN (20:21)
[2020-01-19 22:00] VITALS: BP 119/69
--- NOTE | 2020-01-19 22:18 | IPNPDOC ---
Date Seen The patient was seen on 01/19/20. Progress Note HISTORY OF PRESENT ILLNESS: 89-year-old male with past medical history of hypertension, end-stage renal disease on hemodialysis Tuesday, and Tuesday, atrial fibrillation on Eliquis and coronary artery disease presents from home with abdominal pain since last night. Patient reports feeling well up until then, started having right upper quadrant, epigastric and left upper quadrant abdominal pain. He received morphine in the ED and is comfortable at this time, not having any abdominal pain at this time, asymptomatic. He denies any associated nausea, vomiting, diarrhea or constipation. Imaging in the ED shows 2 large stones in the common bile duct causing obstruction, history of ch olecystectomy. Patient denies any shortness of breath, chest pain or headache. 01/19/20 Seen in the morning, post HD, no acute events overnight, no complaints at this time, no longer having any abdominal pain at this time. 10 point review of system is negative except for above PHYSICAL EXAMINATION: VITAL SIGNS: Please see below. GENERAL: No distress HEENT: Normocephalic, atraumatic, moist mucous membranes NECK: Supple CARDIOVASCULAR EXAMINATION: Irregularly irregular, tachycardic, systolic murmur appreciated RESPIRATORY EXAMINATION: Clear to auscultation, no wheezing ABDOMINAL EXAMINATION: Soft, nontender, nondistended, positive bowel sounds EXTREMITIES: Left upper extremity AV fistula SKIN: No rash NEUROLOGICAL EXAMINATION: Alert and oriented 3, no focal deficits PSYCHIATRIC EXAMINATION: Calm and cooperative LABORATORY DATA: See below. IMAGING: CT abdomen and pelvis showing 2 large stones causing common bile duct obstruction MICROBIOLOGY: Please see below. ASSESSMENT: 89-year-old male with past medical history of atrial fibrillation, end-stage renal disease on hemodialysis, hypertension and coronary artery disease is being admitted for choledocholithiasis. PLAN: 1. Choledocholithiasis. History of cholecystectomy, 2 large stones in the common bile duct, gastroenterology consulted appreciated, plan for ERCP when off of Eliquis for >48 hrs. 2. Atrial fibrillation. Holding Eliquis for ERCP, continue digoxin 3. End-stage renal disease. s/p HD today, continue HD //Tue, nephrology following. DVT prophylaxis: SCDs. GI prophylaxis: Not needed VS, I&O, 24H, Fishbone Vital Signs/I&O Vital Signs Date Time Temp Pulse Resp B/P (MAP) Pulse Ox O2 Delivery O2 Flow Rate FiO2 01/19/20 14:00 97.9 66 20 113/64 (80) 97 Room Air I&O- Last 24 Hours up to 6 AM 01/19/20 05:59 Intake Total 480 ml Output Total 50 ml Balance 430 ml Laboratory Data 24H LABS Laboratory Tests 2 01/19/20 06:01: Nucleated Red Blood Cells % (auto) 0.0, Anion Gap 3L, Glomerular Filtration Rate 9.1L, Calcium Level 8.2L, Magnesium Level 2.2, Total Bilirubin 0.8, Aspartate Amino Transf (AST/SGOT) 54H, Alanine Aminotransferase (ALT/SGPT) 105H, Alkaline Phosphatase 242H, Total Protein 6.5, Albumin 2.8L, Albumin/Globulin Ratio 0.76L CBC/BMP Laboratory Tests 01/19/20 06:01 Microbiology Microbiology 01/18/20 Blood Culture - Preliminary, Resulted No growth after 24 hours . All specim... 01/18/20 Blood Culture - Preliminary, Resulted No growth after 24 hours . All specim... CHARMAINE CHOWDHURY MD Jan 19, 2020 22:18
[2020-01-20 06:00] VITALS: BP 126/71
[2020-01-20] MEDS: MOM 30ML SUSPENSION UDC PO PRN (07:43)
--- NOTE | 2020-01-20 10:28 | IPNPDOC ---
Date Seen The patient was seen on 01/20/20. Progress Note HISTORY OF PRESENT ILLNESS: 89-year-old male with past medical history of hypertension, end-stage renal disease on hemodialysis Tuesday, and Tue, atrial fibrillation on Eliquis and coronary artery disease presents from home with abdominal pain since last night. Patient reports feeling well up until then, started having right upper quadrant, epigastric and left upper quadrant abdominal pain. He received morphine in the ED and is comfortable at this time, not having any abdominal pain at this time, asymptomatic. He denies any associated nausea, vomiting, diarrhea or constipation. Imaging in the ED shows 2 large stones in the common bile duct causing obstruction, history of cholecystectomy. Patient denies any shortness of breath, chest pain or headache. 01/19/20 Seen in the morning, post HD, no acute events overnight, no complaints at this time, no longer having any abdominal pain at this time. 01/20/20 Patient seen in the morning, comfortable in bed, no acute events overnight, no complex at this time, email manager falsely reading severely elevated heart rate, heart rate mildly elevated upon examination. 10 point review of system is negative except for above PHYSICAL EXAMINATION: VITAL SIGNS: Please see below. GENERAL: No distress HEENT: Normocephalic, atraumatic, moist mucous membranes NECK: Supple CARDIOVASCULAR EXAMINATION: Irregularly irregular, tachycardic, systolic murmur appreciated RESPIRATORY EXAMINATION: Clear to auscultation, no wheezing ABDOMINAL EXAMINATION: Soft, nontender, nondistended, positive bowel sounds EXTREMITIES: Left upper extremity AV fistula SKIN: No rash NEUROLOGICAL EXAMINATION: Alert and oriented 3, no focal deficits PSYCHIATRIC EXAMINATION: Calm and cooperative LABORATORY DATA: See below. IMAGING: CT abdomen and pelvis showing 2 large stones causing common bile duct obstruction MICROBIOLOGY: Please see below. ASSESSMENT: 89-year-old male with past medical history of atrial fibrillation, end-stage renal disease on hemodialysis, hypertension and coronary artery disease is being admitted for choledocholithiasis. PLAN: 1. Choledocholithiasis. History of cholecystectomy, 2 large stones in the common bile duct, gastroenterology consult appreciated, plan for ERCP tomorrow. 2. Atrial fibrillation. Holding Eliquis for ERCP, continue digoxin 3. End-stage renal disease. continue HD //Tue, nephrology following. DVT prophylaxis: SCDs. GI prophylaxis: Not needed VS, I&O, 24H, Fishbone Vital Signs/I&O Vital Signs Date Time Temp Pulse Resp B/P (MAP) Pulse Ox O2 Delivery O2 Flow Rate FiO2 01/20/20 06:00 97.6 92 16 126/71 (89) 97 01/19/20 22:00 Room Air I&O- Last 24 Hours up to 6 AM 01/20/20 06:00 Intake Total 600 ml Output Total 1950 ml Balance -1350 ml Laboratory Data Microbiology Microbiology 01/18/20 Blood Culture - Preliminary, Resulted No Growth after 48 hours. All Specime... 01/18/20 Blood Culture - Preliminary, Resulted No Growth after 48 hours. All Specime... CHARMAINE CHOWDHURY MD Jan 20, 2020 10:28
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
--- NOTE | 2020-01-20 12:50 | IPNPDOC ---
Date Seen The patient was seen on 01/20/20. Progress Note Interval history/ short note: In view of low platelets, ESRD on dialysis and us eof Anticoagulant ( Eliquis - last dose on ), reviewed with patient and sanitary plumber on the optimal time of the ERCP. Patient got dialysis on Tuesday. As per discussion with Motor Assembler, patient will be planned for an additional dialysis if possible on Tuesday and will do the ERCP on Tuesday. Patient to be off Eliquis during this period. Discussed the risks and benefits with patient and he verbalized understanding and agreed. If indicated can consider bridging therapy by primary team. GI will follow. NPO for ERCP on Tuesday. VS, I&O, 24H, Fishbone Vital Signs/I&O Vital Signs Date Time Temp Pulse Resp B/P (MAP) Pulse Ox O2 Delivery O2 Flow Rate FiO2 01/20/20 06:00 97.6 92 16 126/71 (89) 97 01/19/20 22:00 Room Air I&O- Last 24 Hours up to 6 AM 01/20/20 06:00 Intake Total 600 ml Output Total 1950 ml Balance -1350 ml Laboratory Data Microbiology Microbiology 01/18/20 Blood Culture - Preliminary, Resulted No Growth after 48 hours. All Specime... 01/18/20 Blood Culture - Preliminary, Resulted No Growth after 48 hours. All Specime... JOSIANE MALIK MD Jan 20, 2020 12:50
[2020-01-20 14:00] VITALS: BP 112/66
[2020-01-20 22:00] VITALS: BP 118/79
[2020-01-20] MEDS: MORPHINE 4 MG/ML 1ML VIAL/SYRINGE (J2270) IV PRN (23:16)
[2020-01-21] MEDS: PERCOCET 5MG/325MG TAB PO PRN (01:12)
[2020-01-21 06:00] VITALS: BP 121/73
[2020-01-21] MEDS: MORPHINE 2 MG/ML 1ML VIAL (J2270) IV PRN ×2 (07:24→09:13)
[2020-01-21] MEDS ORDERED: MORPHINE 2 MG/ML 1ML VIAL (J2270) IV ONE (11:00)
[2020-01-21] MEDS: DIGOXIN 0.125 MG TAB PO SCH (11:10)
[2020-01-21] MEDS ORDERED: HEPARIN 1,000 UNITS/ML 10ML VIAL (FOR RADIOLOGY& DIALYSIS ONLY)(J1644-10) IV ONE (11:15)
[2020-01-21] MEDS ORDERED: LIDOCAINE 1% SDV 5 ML VIAL SQ ONE (11:15)
[2020-01-21 11:57] LABS: BASO % 0.5 % (0.0-1.0); EOS % 0.5 % (0.0-3.0); HEMATOCRIT 37.4 % (42.0-52.0); HEMOGLOBIN 12.3 g/dl (13.5-17.5); LYMPH # 0.8 10^3/uL (1.5-5.0); LYMPH % 12.9 % (24.0-44.0); MEAN CORPUSCULAR HEMOGLOBIN 32.4 pg (27.0-33.0); MEAN CORPUSCULAR HGB CONC 32.9 g/dl (32.0-36.5); MEAN CORPUSCULAR VOLUME 98.4 fl (80.0-96.0); MONO # 0.5 10^3/uL (0.0-0.8); NEUTROPHILS # 4.6 10^3/uL (1.5-8.5); NEUTROPHILS % 76.9 % (36.0-66.0); PLATELET COUNT, AUTOMATED 131 10^3/uL (150-450); WHITE BLOOD COUNT 5.9 10^3/uL (4.0-10.0)
[2020-01-21 12:29] LABS: CALCIUM LEVEL 8.8 MG/DL (8.8-10.2); CREATININE FOR GFR 5.99 MG/DL (0.70-1.30); GLOMERULAR FILTRATION RATE 9.5 (>35); PHOSPHORUS LEVEL 3.7 MG/DL (2.5-4.9); POTASSIUM SERUM 5.6 MEQ/L (3.5-5.1)
[2020-01-21 14:00] VITALS: BP 125/67
--- NOTE | 2020-01-21 14:23 | IPN ---
DATE: 01/20/2020 Mr. Vang is seen this morning on his bedside. He is feeling well and denies any dyspnea or chest pain. He reports some abdominal pain again last night which has now improved. He feels he is constipated. The patient was dialyzed yesterday which he tolerated well. On physical examination, temperature 97.6 degrees Fahrenheit, heart rate 92 per minute and respiratory rate 16 per minute. Blood pressure 126/70 mmHg and oxygen saturation 97% on room air. His head is atraumatic. Neck: Supple and without jugular venous distention (JVD) or thyroid enlargement. Heart sounds are irregular in rhythm and lungs clear to auscultation. Abdomen: Soft and nontender. Bowel sounds are normal. Extremities: Without any cyanosis or clubbing. Left arm AV fistula is patent. Blood cultures have been negative so far. The patient did not have any new labs drawn today. PROBLEMS: 1. End-stage renal disease. The patient was dialyzed yesterday and we will plan to dialyze him again tomorrow as he is likely to have his ERCP on Tuesday. 2. Abdominal pain and stones in the common bile duct. The patient is going to have an ERCP and I have discussed with Dr. Garces. He wants to hold it until Tuesday due to recent use of Eliquis. We will dialyze him tomorrow and optimize him for the procedure on Tuesday. 3. Congestive heart failure. His volume status is very well compensated and we will continue to manage with dialysis. 4. Anemia. He does have mild anemia which does not need any intervention. 5. Atrial fibrillation. His ventricular rate is reasonably well-controlled without any medications. His Eliquis is on hold for need for procedure.
[2020-01-21] MEDS: GABAPENTIN 300 MG CAP PO SCH (14:40)
--- NOTE | 2020-01-21 14:59 | IPNPDOC ---
Date Seen The patient was seen on 01/21/20. Progress Note HISTORY OF PRESENT ILLNESS: 89-year-old male with past medical history of hypertension, end-stage renal disease on hemodialysis Tuesday, and Tuesday, atrial fibrillation on Eliquis and coronary artery disease presents from home with abdominal pain since last night. Patient reports feeling well up until then, started having right upper quadrant, epigastric and left upper quadrant abdominal pain. He received morphine in the ED and is comfortable at this time, not having any abdominal pain at this time, asymptomatic. He denies any associated nausea, vomiting, diarrhea or constipation. Imaging in the ED shows 2 large stones in the common bile duct causing obstruction, history of cho lecystectomy. Patient denies any shortness of breath, chest pain or headache. 01/19/20 Seen in the morning, post HD, no acute events overnight, no complaints at this time, no longer having any abdominal pain at this time. 01/20/20 Patient seen in the morning, comfortable in bed, no acute events overnight, no complex at this time, crane follower falsely reading severely elevated heart rate, heart rate mildly elevated upon examination. 01/21/20 Seen in the morning, reports moderate/severe abdominal pain (LUQ), some what controlled with IV morphine, refusing HD today due to pain, no other complaints. 10 point review of system is negative except for above PHYSICAL EXAMINATION: VITAL SIGNS: Please see below. GENERAL: No distress HEENT: Normocephalic, atraumatic, moist mucous membranes NECK: Supple CARDIOVASCULAR EXAMINATION: Irregularly irregular, systolic murmur appreciated RESPIRATORY EXAMINATION: Clear to auscultation, no wheezing ABDOMINAL EXAMINATION: Soft, LUQ tenderness to palpation, non-distended, positive bowel sounds EXTREMITIES: Left upper extremity AV fistula SKIN: No rash NEUROLOGICAL EXAMINATION: Alert and oriented 3, no focal deficits PSYCHIATRIC EXAMINATION: Calm and cooperative LABORATORY DATA: See below. IMAGING: CT abdomen and pelvis showing 2 large stones causing common bile duct obstruction MICROBIOLOGY: Please see below. ASSESSMENT: 89-year-old male with past medical history of atrial fibrillation, end-stage renal disease on hemodialysis, hypertension and coronary artery disease is being admitted for choledocholithiasis. PLAN: 1. Choledocholithiasis. History of cholecystectomy, 2 large stones in the common bile duct, gastroenterology consult appreciated, plan for ERCP tomorrow IF patient agrees to HD today, otherwise ERCP will be delayed to Tuesday. LUQ may be neuropathic in nature, will start a trial of gabapentin. 2. Atrial fibrillation. Holding Eliquis for ERCP, continue digoxin 3. End-stage renal disease. continue HD //Tue, nephrology following, refusing HD today due to abdominal pain. DVT prophylaxis: SCDs. GI prophylaxis: Not needed VS, I&O, 24H, Fishbone Vital Signs/I&O Vital Signs Date Time Temp Pulse Resp B/P (MAP) Pulse Ox O2 Delivery O2 Flow Rate FiO2 01/21/20 14:00 97.6 87 17 125/67 (86) 98 01/21/20 11:14 Room Air I&O- Last 24 Hours up to 6 AM 01/21/20 06:00 Intake Total 720 ml Output Total 350 ml Balance 370 ml Laboratory Data 24H LABS Laboratory Tests 2 01/21/20 11:40: Immature Granulocyte % (Auto) 0.2, Neutrophils (%) (Auto) 76.9H, Lymphocytes (%) (Auto) 12.9L, Monocytes (%) (Auto) 9.0H, Eosinophils (%) (Auto) 0.5, Basophils (%) (Auto) 0.5, Neutrophils # (Auto) 4.6, Lymphocytes # (Auto) 0.8L, Monocytes # (Auto) 0.5, Eosinophils # (Auto) 0.0, Basophils # (Auto) 0.0, Nucleated Red Blood Cells % (auto) 0.0, Anion Gap 7L, Glomerular Filtration Rate 9.5L, Calcium Level 8.8, Phosphorus Level 3.7, Albumin 3.0L CBC/BMP Laboratory Tests 01/21/20 11:40 Microbiology Microbiology 01/18/20 Blood Culture - Preliminary, Resulted No Growth after 72 hours. All specime... 01/18/20 Blood Culture - Preliminary, Resulted No Growth after 72 hours. All specime... CHARMAINE CHOWDHURY MD Jan 21, 2020 14:59
[2020-01-21 22:00] VITALS: BP 123/67
--- NOTE | 2020-01-21 23:16 | IPN ---
DATE: 01/21/2020 SUBJECTIVE: The patient was seen and examined at the bedside today morning. The patient is in a moderate amount of pain. He is complaining of pain in the upper abdomen, especially in the left upper quadrant site. He is still nothing by mouth (n.p.o.). He is scheduled to have an endoscopic retrograde cholangiopancreatography (ERCP) done tomorrow morning; however, primary team is trying to get his ERCP done today because of a considerable amount of pain. He was supposed to be dialyzed today, but he is refusing dialysis because of the pain. OBJECTIVE: Vital signs: Temperature is 97.2 degrees Fahrenheit, blood pressure 121/73, pulse is 86, respiratory rate of 17, saturating 95% on room air. Intake and output: Urine output was 350 mL yesterday. There is no urine output recorded today. Weight in the bed scale is not available. PHYSICAL EXAMINATION: General: The patient is awake, alert, oriented times three, laying in bed, in moderate amount of pain. Head and Neck Exam: Extraocular muscles intact. Pupils equally round and reactive to light. Mucous membranes are moist. Neck is supple. There is no jugular venous distention (JVD). Cardiovascular: S1, S2, regular rate. No edema of the bilateral lower extremities. Respiratory: Chest is clear to auscultation bilaterally. Bilateral equal air entry. No rales or rhonchi. Abdomen: Soft, positive bowel sounds. Moderate amount of tenderness in the epigastrium and left upper quadrant. No organomegaly was noted. Musculoskeletal: No clubbing or cyanosis. Pulses are 2+. CENTRAL NERVOUS SYSTEM (MOLD UNLOADER): No focal deficit. Power is 5/5 in all extremities. LAB REVIEW: CBC and renal profile have been sent; result is still pending. Labs from January 19, 2020 were all reviewed by myself. Microbiology: Blood cultures are negative so far. IMAGING: CT scan of the abdomen and pelvis from January 18, 2020 has shown two large calcific stones in the common bile duct causing mild to moderate biliary ductal dilatation. CURRENT INPATIENT MEDICATIONS: The patient is on Tylenol as needed, digoxin 0.125 mg by mouth Tuesday, Tuesday, Tuesday, heparin subcu, Milk of Magnesia as needed for constipation, morphine as needed for pain, and Percocet one tablet every 4 hours as needed for moderate pain. ASSESSMENT/PLAN: 1. End-stage renal disease. The patient was dialyzed over the weekend. He was supposed to be dialyzed today again to optimize him for the procedure tomorrow. However, he is in a considerable amount of pain, and he is refusing to have dialysis done again. 2. Choledocholithiasis. The patient has two large stones in the common bile duct (CBD) causing dilatation and pain. He is supposed to have ERCP done tomorrow. However, primary team is trying to get him scheduled for ERCP today. 3. Atrial fibrillation. The patient's heart rate is controlled at this time. He is currently on digoxin. Anticoagulation is on hold because of the procedure. 4. Anemia in end-stage renal disease. Latest hemoglobin is 11.8. No need of Aranesp at this time.
[2020-01-22 06:00] VITALS: BP 116/72
[2020-01-22 06:41] LABS: HEMATOCRIT 35.6 % (42.0-52.0); HEMOGLOBIN 12.1 g/dl (13.5-17.5); MEAN CORPUSCULAR HEMOGLOBIN 32.9 pg (27.0-33.0); MEAN CORPUSCULAR VOLUME 96.7 fl (80.0-96.0); PLATELET COUNT, AUTOMATED 116 10^3/uL (150-450); RED BLOOD COUNT 3.68 10^6/uL (4.30-6.10); WHITE BLOOD COUNT 5.6 10^3/uL (4.0-10.0)
[2020-01-22 07:08] LABS: ALBUMIN 2.6 GM/DL (3.2-5.2); CREATININE FOR GFR 4.93 MG/DL (0.70-1.30); GLOMERULAR FILTRATION RATE 11.9 (>35); POTASSIUM SERUM 4.9 MEQ/L (3.5-5.1)
[2020-01-22] MEDS: CIPROFLOXACIN 400 MG in IV 1 EA IV SCH (10:29)
[2020-01-22] MEDS: GABAPENTIN 300 MG CAP PO SCH (10:29)
[2020-01-22] MEDS ORDERED: D5W/0.45% SODIUM CHLORIDE 1,000 ML IV SCH (12:00)
[2020-01-22] MEDS: metroNIDAZOLE 500 MG in IV 1 EA IV SCH ×2 (13:23→21:12)
[2020-01-22 14:00] VITALS: BP 121/74
[2020-01-22] MEDS ORDERED: ROCURONIUM BROMIDE 50 MG/5 ML VIAL As Ordered ONE (15:42)
[2020-01-22] MEDS ORDERED: dexameTHASONE 4 MG/ML 1ML VIAL (J1100) As Ordered ONE (15:42)
[2020-01-22] MEDS ORDERED: LIDOCAINE 2% INJ 100 MG/5 ML SDV (FOR ANES.) As Ordered ONE (15:42)
[2020-01-22] MEDS ORDERED: ONDANSETRON 4MG/2ML VIAL (J2405) As Ordered ONE (15:42)
[2020-01-22] MEDS ORDERED: propofoL 200 MG/20 ML VIAL As Ordered ONE (15:42)
[2020-01-22] MEDS ORDERED: fentaNYL 250 MCG/5 ML INJECTION (J3010) As Ordered ONE (15:43)
[2020-01-22] MEDS ORDERED: ISOVUE-300 61% 50ML VIAL (Q9967) As Ordered ONE (16:45)
--- NOTE | 2020-01-22 17:34 | IPN ---
DATE: 01/22/2020 SUBJECTIVE: The patient was seen and examined at the bedside today morning. He is afebrile, hemodynamically stable. He reports his pain is slightly better today as compared with yesterday. He is nothing by mouth for endoscopic retrograde cholangiopancreatography (ERCP) procedure today. He was dialyzed for two hours yesterday because of hyperkalemia and to optimize him for the procedure today. He tolerated the hemodialysis procedure well. OBJECTIVE: VITAL SIGNS: Temperature is 99.1 degrees Fahrenheit, blood pressure 116/72, pulse is 96, respiratory rate of 17, saturating 95% on room air. INTAKE AND OUTPUT: The urine output recorded is 100 mL yesterday. Ultrafiltration with hemodialysis was 1 liter. Weight in the bed scale is not available. PHYSICAL EXAMINATION: GENERAL: The patient is awake, alert, oriented times three, laying in bed, in no apparent distress. HEAD AND NECK: Extraocular muscles intact. Pupils equally round and reactive to light. Mucous membranes are moist. Neck is supple. There is no jugular venous distention (JVD). CARDIOVASCULAR: S1, S2, regular rate. No edema of the bilateral lower extremities. RESPIRATORY: Chest is clear to auscultation bilaterally. Bilateral equal air entry. No rales or rhonchi. ABDOMEN: Soft, positive bowel sounds. Mild amount of tenderness in the epigastrium on deep palpation. MUSCULOSKELETAL: No clubbing or cyanosis. Pulses are 2+. CENTRAL NERVOUS SYSTEM (FARM MACHINE TENDER): No focal deficit. Power is 5/5 in all extremities. The patient is hard of hearing and he is wearing hearing aids. LABORATORY REVIEW: CBC showed a WBC of 5.6, hemoglobin 12.1, platelets are 116. BMP showed sodium 136, potassium 4.9, chloride 100, bicarbonate 31, BUN 30, creatinine is 4.9, AST 53, ALT is 89, alkaline phosphatase is 262, albumin is 2.6. CURRENT INPATIENT MEDICATIONS: The patient's medications were all reviewed by myself. I have started the patient on D5 half-normal saline at 60 mL an hour. He continues to be on IV ciprofloxacin and Flagyl. ASSESSMENT AND PLAN: 1. End-stage renal disease. The patient was dialyzed for two hours yesterday to optimize his volume status and hyperkalemia. No need of dialysis today. The patient is going for the procedure. He will be dialyzed tomorrow morning. 2. Choledocholithiasis. The patient is still nothing by mouth. He is going to have endoscopic retrograde cholangiopancreatography (ERCP) done. He is empirically being given ciprofloxacin and Flagyl. 3. Atrial fibrillation. Heart rate is controlled. Continue the digoxin. Anticoagulation on hold because of ERCP procedure.
[2020-01-22] MEDS ORDERED: SUGAMMADEX SODIUM 500 MG/5 ML VIAL (BRIDION) As Ordered ONE (17:39)
--- NOTE | 2020-01-22 17:43 | IPNPDOC ---
Date Seen The patient was seen on 01/22/20. Progress Note HISTORY OF PRESENT ILLNESS: 89-year-old male with past medical history of hypertension, end-stage renal disease on hemodialysis Tuesday, and Tuesday, atrial fibrillation on Eliquis and coronary artery disease presents from home with abdominal pain since last night. Patient reports feeling well up until then, started having right upper quadrant, epigastric and left upper quadrant abdominal pain. He received morphine in the ED and is comfortable at this time, not having any abdominal pain at this time, asymptomatic. He denies any associated nausea, vomiting, diarrhea or constipation. Imaging in the ED shows 2 large stones in the common bile duct causing obstruction, history of cho lecystectomy. Patient denies any shortness of breath, chest pain or headache. 01/19/20 Seen in the morning, post HD, no acute events overnight, no complaints at this time, no longer having any abdominal pain at this time. 01/20/20 Patient seen in the morning, comfortable in bed, no acute events overnight, no complex at this time, threat monitoring analyst falsely reading severely elevated heart rate, heart rate mildly elevated upon examination. 01/21/20 Seen in the morning, reports moderate/severe abdominal pain (LUQ), some what controlled with IV morphine, refusing HD today due to pain, no other complaints. 01/22/20 Received two hours of HD yesterday, no abdominal pain today, febrile overnight, no other complaints, scheduled for ERCP today. 10 point review of system is negative except for above PHYSICAL EXAMINATION: VITAL SIGNS: Please see below. GENERAL: No distress HEENT: Normocephalic, atraumatic, moist mucous membranes NECK: Supple CARDIOVASCULAR EXAMINATION: Irregularly irregular, systolic murmur appreciated RESPIRATORY EXAMINATION: Clear to auscultation, no wheezing ABDOMINAL EXAMINATION: Soft, non-tender, non-distended, positive bowel sounds EXTREMITIES: Left upper extremity AV fistula SKIN: No rash NEUROLOGICAL EXAMINATION: Alert and oriented 3, no focal deficits PSYCHIATRIC EXAMINATION: Calm and cooperative LABORATORY DATA: See below. IMAGING: CT abdomen and pelvis showing 2 large stones causing common bile duct obstruction MICROBIOLOGY: Please see below. ASSESSMENT: 89-year-old male with past medical history of atrial fibrillation, end-stage renal disease on hemodialysis, hypertension and coronary artery disease is being admitted for choledocholithiasis. PLAN: 1. Choledocholithiasis. History of cholecystectomy, 2 large stones in the common bile duct, gastr oenterology consult appreciated, plan for ERCP today, febrile overnight, empiric Cipro/Flagyl. 2. Atrial fibrillation. Holding Eliquis for ERCP, continue digoxin 3. End-stage renal disease. continue HD Tu/Th/Sat, nephrology following, received 2 hours of HD yesterday. DVT prophylaxis: SCDs. GI prophylaxis: Not needed VS, I&O, 24H, Fishbone Vital Signs/I&O Vital Signs Date Time Temp Pulse Resp B/P (MAP) Pulse Ox O2 Delivery O2 Flow Rate FiO2 01/22/20 14:00 97.7 83 19 121/74 (90) 95 Room Air I&O- Last 24 Hours up to 6 AM 01/22/20 06:00 Intake Total 540 ml Output Total 1100 ml Balance -560 ml Laboratory Data 24H LABS Laboratory Tests 2 01/22/20 06:12: Nucleated Red Blood Cells % (auto) 0.0, Anion Gap 5L, Glomerular Filtration Rate 11.9L, Calcium Level 8.0L, Total Bilirubin 1.0, Aspartate Amino Transf (AST/SGOT) 53H, Alanine Aminotransferase (ALT/SGPT) 89H, Alkaline Phosphatase 262H, Total Protein 6.0L, Albumin 2.6L, Albumin/Globulin Ratio 0.76L CBC/BMP Laboratory Tests 01/22/20 06:12 Microbiology Microbiology 01/18/20 Blood Culture - Preliminary, Resulted No Growth after 72 hours. All specime... 01/18/20 Blood Culture - Preliminary, Resulted No Growth after 72 hours. All specime... CHARMAINE CHOWDHURY MD Jan 22, 2020 17:43
[2020-01-22] MEDS ORDERED: ESMOLOL INJ 100MG/10ML VIAL As Ordered ONE ×2 (18:08→18:29)
[2020-01-22] MEDS ORDERED: PHENYLEPHRINE INJ 10MG/ML VIAL (J2370) As Ordered ONE (18:22)
[2020-01-22] MEDS ORDERED: PHENYLephrine HCL 500 MCG/5 ML (100MCG/ML) SYRINGE (J2370) As Ordered ONE ×2 (18:22→21:54)
--- NOTE | 2020-01-22 18:56 | ROOR ---
Patient Name: Matthieu Castro Procedure Date: 01/22/2020 5:24 PM Date of : 1930 Age: 89 Room: Main OR Gender: Male Note Status: Finalized Procedure: ERCP Indications: Bile duct stone(s) Providers: Buddy Garces MD Referring MD: 2. Inpatient 2. Inpatient, Evelyn Monson Md Requesting Provider: Medicines: Monitored Anesthesia Care Complications: No immediate complications. Procedure: Pre-Anesthesia Assessment: - Prior to the procedure, a History and Physical was performed, and patient medications and allergies were reviewed. The patient is competent. The risks and benefits of the procedure and the sedation options and risks were discussed with the patient. All questions were answered and informed consent was obtained. Patient identification and proposed procedure were verified by the physician, the nurse and the anesthesiologist in the procedure room. Mental Status Examination: alert and oriented. Airway Examination: normal oropharyngeal airway and neck mobility. Respiratory Examination: clear to auscultation. CV Examination: irregularly irregular rate and rhythm. Prophylactic Antibiotics: The patient does not require prophylactic antibiotics. Prior Anticoagulants: The patient has taken no previous anticoagulant or antiplatelet agents. ASA Grade Assessment: III - A patient with severe systemic disease. After reviewing the risks and benefits, the patient was deemed in satisfactory condition to undergo the procedure. The anesthesia plan was to use monitored anesthesia care (MAC). Immediately prior to administration of medications, the patient was re-assessed for adequacy to receive sedatives. The heart rate, respiratory rate, oxygen saturations, blood pressure, adequacy of pulmonary ventilation, and response to care were monitored throughout the procedure. The physical status of the patient was re-assessed after the procedure. The Duodenoscope was introduced through the mouth, and advanced to the duodenum and used to inject contrast into the bile duct. The ERCP was accomplished without difficulty. The patient tolerated the procedure well. Findings: The life insurance actuary film was normal. The esophagus was successfully intubated under direct vision without detailed examination of the pharynx, larynx, and associated structures, and upper GI tract. The upper GI tract was grossly normal. The major papilla was bulging. A 0.035 inch x 260 cm straight Hydra Jagwire was passed into the biliary tree. The short-nosed traction sphincterotome was passed over the guidewire and the bile duct was then deeply cannulated. Contrast was injected. I personally interpreted the bile duct images. Ductal flow of contrast was adequate. Image quality was adequate. Contrast extended to the entire biliary tree. The common bile duct contained filling defect(s) thought to be a stone. The main bile duct was diffusely dilated, with a stone causing an obstruction. The largest diameter was 15 mm. A cholecystectomy had been performed. Biliary sphincterotomy was made with a monofilament traction (standard) sphincterotome using ERBE electrocautery. There was no post-sphincterotomy bleeding. Lithotripsy with the mechanical lithotripter was unsuccessful because the stone could not be trapped. The biliary tree was swept with a 12 mm balloon starting at the bifurcation. Stones were large and did not come out with balloon sweep. One 10 mm by 4 cm covered metal stent was placed 3 cm into the common bile duct. Bile flowed through the stent. The stent was in good position. Impression: - The major papilla appeared to be bulging. - A filling defect consistent with a stone was seen on the cholangiogram. - The entire main bile duct was dilated, with a stone causing an obstruction. - The patient has had a cholecystectomy. - A biliary sphincterotomy was performed. - Lithotripsy was unsuccessful because the stone could not be trapped. - The biliary tree was swept. - One covered metal stent was placed into the common bile duct. Recommendation: - The patient will be observed post-procedure, until all discharge criteria are met. - Patient has a contact number available for emergencies. The signs and symptoms of potential delayed complications were discussed with the patient. Return to normal activities tomorrow. Written discharge instructions were provided to the patient. - [facility]. - Avoid aspirin and nonsteroidal anti-inflammatory medicines. - Clear liquid diet for 1 day, then advance as tolerated to resume previous diet. - Perform an ERCP with cholangioscopy and stone removal. (Refer to JESSICA). - Use broad spectrum antibiotics for 5 days. - Return to primary care physician. Buddy Garces MD Buddy Garces MD 01/22/2020 6:55:35 PM Electronically signed by Buddy Garces MD Number of Addenda: 0 Note Initiated On: 01/22/2020 5:24 PM Estimated Blood Loss: Estimated blood loss was minimal.
[2020-01-22] MEDS ORDERED: METOPROLOL 5 MG/5 ML VIAL As Ordered ONE (19:20)
[2020-01-22] MEDS: PHENYLephrine HCL 500 MCG/5 ML (100MCG/ML) SYRINGE (J2370) IV PRN ×3 (19:23→19:36)
[2020-01-22] MEDS: METOPROLOL 5 MG/5 ML VIAL IV PRN ×2 (19:27→19:37)
[2020-01-22 19:37] VITALS: BP 102/56
[2020-01-22] MEDS ORDERED: NS 1,000 ML IV SCH (19:45)
[2020-01-22] MEDS ORDERED: ONDANSETRON 4MG/2ML VIAL (J2405) IV PRN (19:45)
[2020-01-22] MEDS ORDERED: fentaNYL 100 MCG/2 ML INJECTION (J3010) IV PRN (19:45)
[2020-01-22] MEDS ORDERED: DIGOXIN 0.0625MG PER 1/2TABLET PO ONE (20:00)
[2020-01-22] MEDS ORDERED: NS 500 ML IV ONE ×2 (20:00→23:30)
[2020-01-22 20:10] LABS: BASO % 0.4 % (0.0-1.0); EOS % 0.4 % (0.0-3.0); HEMATOCRIT 38.7 % (42.0-52.0); HEMOGLOBIN 12.7 g/dl (13.5-17.5); LYMPH # 0.5 10^3/uL (1.5-5.0); LYMPH % 8.9 % (24.0-44.0); MEAN CORPUSCULAR HEMOGLOBIN 32.4 pg (27.0-33.0); MEAN CORPUSCULAR HGB CONC 32.8 g/dl (32.0-36.5); MEAN CORPUSCULAR VOLUME 98.7 fl (80.0-96.0); MONO # 0.2 10^3/uL (0.0-0.8); MONO % 4.5 % (0.0-5.0); NEUTROPHILS # 4.6 10^3/uL (1.5-8.5); NEUTROPHILS % 85.4 % (36.0-66.0); PLATELET COUNT, AUTOMATED 129 10^3/uL (150-450); RED BLOOD COUNT 3.92 10^6/uL (4.30-6.10); WHITE BLOOD COUNT 5.4 10^3/uL (4.0-10.0)
[2020-01-22 20:41] LABS: ALBUMIN 2.9 GM/DL (3.2-5.2); CALCIUM LEVEL 8.6 MG/DL (8.8-10.2); CREATININE FOR GFR 5.43 MG/DL (0.70-1.30); GLOMERULAR FILTRATION RATE 10.7 (>35); MAGNESIUM LEVEL 2.7 MG/DL (1.8-2.4); PHOSPHORUS LEVEL 3.8 MG/DL (2.5-4.9); POTASSIUM SERUM 4.9 MEQ/L (3.5-5.1); THYROID STIMULATING HORMONE 0.326 uIU/ML (0.358-3.740); TOTAL PROTEIN 6.7 GM/DL (6.4-8.2); TROPONIN I 0.03 NG/ML (< 0.10)
--- NOTE | 2020-01-22 21:02 | REP ---
C-ARM VIEWS DURING ERCP: Multiple C-Arm views are performed during ERCP. Contrast is injected into the biliary system which appears mildly dilated. There are two filling defects in the common bile duct. Catheter manipulation is performed. A stent is placed in the distal common bile duct which appears to cross the ampulla of Vater. Fluoroscopy time: 1 minute. Electronically Signed by Lui Pinto MD 01/23/2020 03:53 P
--- NOTE | 2020-01-22 21:08 | IPNPDOC ---
Text Note Date of Service The patient was seen on 01/22/20. NOTE Time of service 7:40 PM I was asked to evaluate the patient by and Dr. Garces because of rapid A. fib with a heart rate as high as the 140s to 160s. Per discussion with the PAC RN the patient received about 600ml of IV fluids during the procedure and 2 doses of metoprolol, which were ordered by the anesthesiologist. Currently the patient denies having any acute complaints. He denies any chest pain, or awareness of any palpitations. 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
[2020-01-22 22:00] VITALS: BP 112/61
[2020-01-22 22:03] LABS: FREE T3 2.4 PG/ML (2.2-4.0); FREE T4 1.67 NG/DL (0.76-1.46)
[2020-01-22 23:00] VITALS: BP 110/65
[2020-01-23] VITALS (10 sets, daily range): BP systolic 103–117; BP diastolic 57–73
[2020-01-23] MEDS: metroNIDAZOLE 500 MG in IV 1 EA IV SCH ×3 (02:09→18:07)
[2020-01-23 04:56] LABS: HEMATOCRIT 35.5 % (42.0-52.0); HEMOGLOBIN 11.8 g/dl (13.5-17.5); MEAN CORPUSCULAR HEMOGLOBIN 32.5 pg (27.0-33.0); MEAN CORPUSCULAR HGB CONC 33.2 g/dl (32.0-36.5); MEAN CORPUSCULAR VOLUME 97.8 fl (80.0-96.0); PLATELET COUNT, AUTOMATED 131 10^3/uL (150-450); RED BLOOD COUNT 3.63 10^6/uL (4.30-6.10); WHITE BLOOD COUNT 5.8 10^3/uL (4.0-10.0)
[2020-01-23 05:16] LABS: CALCIUM LEVEL 8.2 MG/DL (8.8-10.2); CREATININE FOR GFR 5.74 MG/DL (0.70-1.30); MAGNESIUM LEVEL 2.6 MG/DL (1.8-2.4); POTASSIUM SERUM 5.3 MEQ/L (3.5-5.1)
[2020-01-23] MEDS: DIGOXIN 0.125 MG TAB PO SCH (05:40)
[2020-01-23] MEDS: CIPROFLOXACIN 400 MG in IV 1 EA IV SCH (05:41)
[2020-01-23] MEDS: GABAPENTIN 300 MG CAP PO SCH (08:54)
[2020-01-23] MEDS ORDERED: MOM 30ML SUSPENSION UDC PO PRN (13:45)
--- NOTE | 2020-01-23 18:49 | IPNPDOC ---
Date Seen The patient was seen on 01/23/20. 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 Patient reports feeling well up until then, started having right upper quadrant, epigastric and left upper quadrant abdominal pain. He received morphine in the ED and is comfortable at this time, not having any abdominal pain at this time, asymptomatic. He denies any associated nausea, vomiting, diarrhea or constipation. Imaging in the ED shows 2 large stones in the common bile duct causing obstruction, history of cholecystectomy. Patient denies any shortness of breath, chest pain or headache. 01/19/20 Seen in the morning, post HD, no acute events overnight, no complaints at this time, no longer having any abdominal pain at this time. 01/20/20 Patient seen in the morning, comfortable in bed, no acute events overnight, no complex at this time, youth nutritional monitor falsely reading severely elevated heart rate, heart rate mildly elevated upon examination. 01/21/20 Seen in the morning, reports moderate/severe abdominal pain (LUQ), some what controlled with IV morphine, refusing HD today due to pain, no other complaints. 01/22/20 Received two hours of HD yesterday, no abdominal pain today, febrile overnight, no other complaints, scheduled for ERCP today. 01/23/20 Underwent ERCP yesterday, developed A. fib with RVR after the procedure, transferred to ICU for closer monitoring. Patient seen the morning, comfortable in bed, without any complaints, wishing to go home. 10 point review of system is negative except for above PHYSICAL EXAMINATION: VITAL SIGNS: Please see below. GENERAL: No distress HEENT: Normocephalic, atraumatic, moist mucous membranes NECK: Supple CARDIOVASCULAR EXAMINATION: Irregularly irregular, systolic murmur appreciated RESPIRATORY EXAMINATION: Clear to auscultation, no wheezing ABDOMINAL EXAMINATION: Soft, non-tender, non-distended, positive bowel sounds EXTREMITIES: Left upper extremity AV fistula SKIN: No rash NEUROLOGICAL EXAMINATION: Alert and oriented 3, no focal deficits PSYCHIATRIC EXAMINATION: Calm and cooperative LABORATORY DATA: See below. IMAGING: CT abdomen and pelvis showing 2 large stones causing common bile duct obstruction MICROBIOLOGY: Please see below. ASSESSMENT: 89-year-old male with past medical history of atrial fibrillation, end-stage renal disease on hemodialysis, hypertension and coronary artery disease is being admitted for choledocholithiasis. PLAN: 1. Choledocholithiasis. History of cholecystectomy, 2 large stones in the common bile duct, status p ost ERCP yesterday, stent placed, unable to perform lithotripsy due to large stone, will require repeat ERCP with cholecystoscopy in [place], will follow up in an outpatient setting, continue Cipro/Flagyl. Tentatively plan for discharge tomorrow if H&H stable. 2. Atrial fibrillation. Okay to restart Eliquis 48 hours after ERCP as per GI, continue digoxin 3. End-stage renal disease. continue HD //Tue, nephrology following, plan for extra HD session today. DVT prophylaxis: SCDs. GI prophylaxis: Not needed VS, I&O, 24H, Fishbone Vital Signs/I&O Vital Signs Date Time Temp Pulse Resp B/P (MAP) Pulse Ox O2 Delivery O2 Flow Rate FiO2 01/23/20 12:00 97.8 86 14 116/73 (87) 99 Room Air 01/23/20 08:00 2.0 I&O- Last 24 Hours up to 6 AM 01/23/20 06:00 Intake Total 2910 ml Output Total 0 ml Balance 2910 ml Laboratory Data 24H LABS Laboratory Tests 2 01/22/20 19:51: Immature Granulocyte % (Auto) 0.4, Neutrophils (%) (Auto) 85.4H, Lymphocytes (%) (Auto) 8.9L, Monocytes (%) (Auto) 4.5, Eosinophils (%) (Auto) 0.4, Basophils (%) (Auto) 0.4, Neutrophils # (Auto) 4.6, Lymphocytes # (Auto) 0.5L, Monocytes # (Auto) 0.2, Eosinophils # (Auto) 0.0, Basophils # (Auto) 0.0, Nucleated Red Blood Cells % (auto) 0.0, Anion Gap 9, Glomerular Filtration Rate 10.7L, Calcium Level 8.6L, Phosphorus Level 3.8, Magnesium Level 2.7H, Total Bilirubin 1.0, Aspartate Amino Transf (AST/SGOT) 41H, Alanine Aminotransferase (ALT/SGPT) 83H, Alkaline Phosphatase 291H, Troponin I 0.03, Total Protein 6.7, Albumin 2.9L, Albumin/Globulin Ratio 0.76L, Thyroid Stimulating Hormone (TSH) 0.326L, Free Thyroxine 1.67H, Free Triiodothyronine 2.4 01/23/20 04:32: Nucleated Red Blood Cells % (auto) 0.0, Anion Gap 7L, Glomerular Filtration Rate 10.0L, Calcium Level 8.2L, Magnesium Level 2.6H CBC/BMP Laboratory Tests 01/22/20 19:51 01/23/20 04:32 Microbiology Microbiology 01/18/20 Blood Culture - Final, Complete NO GROWTH AFTER 5 DAYS 01/18/20 Blood Culture - Final, Complete NO GROWTH AFTER 5 DAYS CHARMAINE CHOWDHURY MD Jan 23, 2020 18:49
[2020-01-24] MEDS: metroNIDAZOLE 500 MG in IV 1 EA IV SCH ×2 (02:26→10:50)
[2020-01-24] MEDS: PERCOCET 5MG/325MG TAB PO PRN (05:26)
[2020-01-24 06:00] VITALS: BP 113/72
[2020-01-24 06:43] LABS: HEMATOCRIT 34.4 % (42.0-52.0); HEMOGLOBIN 11.3 g/dl (13.5-17.5); MEAN CORPUSCULAR HEMOGLOBIN 32.1 pg (27.0-33.0); MEAN CORPUSCULAR HGB CONC 32.8 g/dl (32.0-36.5); MEAN CORPUSCULAR VOLUME 97.7 fl (80.0-96.0); PLATELET COUNT, AUTOMATED 126 10^3/uL (150-450); RED BLOOD COUNT 3.52 10^6/uL (4.30-6.10); WHITE BLOOD COUNT 7.1 10^3/uL (4.0-10.0)
[2020-01-24 07:10] LABS: ALBUMIN 2.7 GM/DL (3.2-5.2); BILIRUBIN,TOTAL 0.6 MG/DL (0.2-1.0); CALCIUM LEVEL 8.1 MG/DL (8.8-10.2); CREATININE FOR GFR 3.73 MG/DL (0.70-1.30); GLOMERULAR FILTRATION RATE 16.4 (>35); TOTAL PROTEIN 6.2 GM/DL (6.4-8.2)
[2020-01-24] MEDS: CIPROFLOXACIN 400 MG in IV 1 EA IV SCH (08:42)
[2020-01-24] MEDS: GABAPENTIN 300 MG CAP PO SCH (08:42)
[2020-01-24] MEDS ORDERED: CIPR-249 PO (12:37)
[2020-01-24] MEDS ORDERED: FLAG500T PO (12:37)
--- NOTE | 2020-01-24 14:58 | IPN ---
DATE: 01/23/2020 SUBJECTIVE: The patient was seen and examined at the bedside today morning in the intensive care unit (ICU). He is afebrile, hemodynamically stable. He got the endoscopic retrograde cholangiopancreatography (ERCP) done yesterday. Stone from the common bile duct (CBD) could not be removed; however, he had a stent placed after sphincterotomy. He reports his pain in abdomen is better. Today is his regular day of dialysis. He is tolerating a liquid diet now. OBJECTIVE: Vital signs: Temperature is on 96.9 degrees Fahrenheit, blood pressure 110/63, pulse is 85, respiratory rate of 13, saturating 98% on room air. Intake and output: Urine output recorded is 100 mL. Weight in the bed scale is 74.5 kg. PHYSICAL EXAMINATION: GENERAL: The patient is awake, alert, oriented times three, lying in bed apparent in no apparent distress. HEAD AND NECK: Extraocular muscles intact. Pupils equally round and reactive to light. He is wearing hearing aid. Neck is supple. There is no jugular venous distention (JVD). CARDIOVASCULAR: S1, S2, regular rate. No edema of the bilateral lower extremities. RESPIRATORY: Chest is clear to auscultation bilaterally. Bilateral equal air entry. No rales or rhonchi. ABDOMEN: Soft. Positive bowel sounds. Nontender. MUSCULOSKELETAL: No clubbing or cyanosis. Pulses are 2+. CENTRAL NERVOUS SYSTEM: No focal deficit. Power is 5/5 in all extremities. LABORATORY REVIEW: CBC showed WBC 5.8, hemoglobin 11.8, platelets are 131. BMP showed sodium 138, potassium 5.3, chloride 101, bicarbonate 30, BUN 38, creatinine is 5.7, calcium 8.2, magnesium is 2.6. Microbiology: Blood cultures are negative so far. CURRENT INPATIENT MEDICATIONS: The patient's medications were all reviewed by me. He is currently on ciprofloxacin and Flagyl. He was given one normal saline bolus 500 mL yesterday. Metoprolol has been stopped. No other change in the medications today as compared with yesterday. ASSESSMENT AND PLAN: 1. End-stage renal disease. The patient is dialysis dependent. He will be dialyzed today. Ultrafiltration goal will be around 1.5 liters as tolerated by his blood pressure. 2. Choledocholithiasis status post ERCP. The patient is tolerating the liquid diet. Diet will be advanced to a regular diet by tomorrow. He is status post ERCP and stenting of the CBD. Stone could not be removed, and he is being referred to [facility] ([facility] for further intervention. 3. Atrial fibrillation. Heart rate is controlled. Anticoagulation is on hold because of recent procedure. 4. Hyperkalemia. The patient will be dialyzed with a 2K bath. Potassium level is expected to improve after dialysis.
--- NOTE | 2020-01-24 19:21 | DS.PDOC ---
Discharge Summary General Date of Admission Jan 18, 2020 at 11:59 Date of Discharge 01/24/20 Attending Physician: CHARMAINE CHOWDHURY MD Discharge Summary PROCEDURES PERFORMED DURING STAY: ERCP ADMITTING DIAGNOSES: 1. Choledocholithiasis DISCHARGE DIAGNOSES: 1. Choledocholithiasis COMPLICATIONS/CHIEF COMPLAINT: Coronary Artery Disease,Choledocholithiasis,. HISTORY OF PRESENT ILLNESS: 89 y.o male w/ PMH of Afib (on Eliquis), CAD & ESRD (on HD) was admitted for choledocholithiasis. Eliquis was held for >72 hours and patient underwent ERCP with stent placement, unable to undergo lithotripsy/stone removal due to its size. Patient developed a fever during his stay and he was started on Cipro/flagyl. patient will be discharged on Cipro/Flagyl to complete his antibiotic course. He will require follow up in [place] for repeat ERCP with cholecystoscopy for removal of stone. patient is advised to restarted Eliquis tomorrow. He is clinically and hemodynamically stable for discharge home with outpatient follow up. HOSPITAL COURSE: As above. DISCHARGE MEDICATIONS: Please see below. ALLERGIES: Please see below. PHYSICAL EXAMINATION: VITAL SIGNS: Please see below. GENERAL: No distress HEENT: Normocephalic, atraumatic, moist mucous membranes NECK: Supple CARDIOVASCULAR EXAMINATION: Irregularly irregular, systolic murmur appreciated RESPIRATORY EXAMINATION: Clear to auscultation, no wheezing ABDOMINAL EXAMINATION: Soft, non-tender, non-distended, positive bowel sounds EXTREMITIES: Left upper extremity AV fistula SKIN: No rash NEUROLOGICAL EXAMINATION: Alert and oriented 3, no focal deficits PSYCHIATRIC EXAMINATION: Calm and cooperative LABORATORY DATA: Please see below. IMAGING: CT showed two large stones in the common bile duct PROGNOSIS: Fair ACTIVITY: As tolerated DIET: Cardiac DISCHARGE PLAN: f/u with PCP, GI & Allergy Specialist in 1-2 weeks, f/u with [place] for stone removal DISPOSITION: Home, Self-Care. DISCHARGE INSTRUCTIONS: 1. As above DISCHARGE CONDITION: Stable TIME SPENT ON DISCHARGE: Greater than 34 minutes. Vital Signs/I&Os Vital Signs Date Time Temp Pulse Resp B/P (MAP) Pulse Ox O2 Delivery O2 Flow Rate FiO2 01/24/20 06:00 97.3 89 20 113/72 (86) 98 Room Air 01/23/20 08:00 2.0 I&O- Last 24 Hours up to 6 AM 01/24/20 05:59 Intake Total 1320 ml Output Total 1600 ml Balance -280 ml Laboratory Data Labs 24H Laboratory Tests 2 01/24/20 06:25: Nucleated Red Blood Cells % (auto) 0.0, Anion Gap 5L, Glomerular Filtration Rate 16.4L, Calcium Level 8.1L, Total Bilirubin 0.6, Aspartate Amino Transf (AST/SGOT) 22, Alanine Aminotransferase (ALT/SGPT) 56, Alkaline Phosphatase 210H, Total Protein 6.2L, Albumin 2.7L, Albumin/Globulin Ratio 0.77L CBC/BMP Laboratory Tests 01/24/20 06:25 Microbiology Microbiology 01/18/20 Blood Culture - Final, Complete NO GROWTH AFTER 5 DAYS 01/18/20 Blood Culture - Final, Complete NO GROWTH AFTER 5 DAYS Discharge Medications Scheduled Apixaban (Eliquis) 2.5 Mg Tab, 2.5 MG PO BID, (Reported) Ciprofloxacin HCl (Cipro) 500 Mg Tablet, 500 MG PO DAILY Digoxin (Digoxin) 125 Mcg Tablet, 125 MCG PO 3XW, (Reported) EVERY M/W/F Metronidazole (Flagyl) 500 Mg Tablet, 500 MG PO Q8H FOR 10 DAYS Ubidecarenone (Coq-10) 100 Mg Capsule, 100 MG PO DAILY, (Reported) Vit A/Vit C/Vit E/Zinc/Copper (Icaps Areds Formula Dr Tablet) 1 Each Tablet.dr, 1 TAB PO DAILY, (Reported) Scheduled PRN Acetaminophen (Acetaminophen) 325 Mg Tab, 650 MG PO Q4HP PRN for PAIN, (Reported) Acetaminophen/Diphenhydramine (Acetaminophen Pm Caplet) 1 Each Tablet, 1 TAB PO QHS PRN for SLEEP, (Reported) Allergies Coded Allergies: Penicillins (Verified Allergy, Severe, neck swelling, can't breathe, 04/19/19) CHARMAINE CHOWDHURY MD Jan 24, 2020 19:21
--- NOTE | 2020-01-24 20:12 | IPN ---
DATE: 01/24/2020 SUBJECTIVE: The patient was seen and examined at the bedside today morning. He is afebrile, hemodynamically stable. He was downgraded out the intensive care unit (ICU). He was dialyzed yesterday. He tolerated the hemodialysis procedure well. Ultrafiltration was 1.5 liters. The patient reports that he is feeling better and he wants to go home now. OBJECTIVE: VITAL SIGNS: Temperature is 97.3 degrees Fahrenheit, blood pressure 113/72, pulse is 89, respiratory rate of 20, saturating 98% on room air. INTAKE AND OUTPUT: There is no urine output recorded. Ultrafiltration was 1.5 liters. Weight in the bed scale was 74.5 kg yesterday. PHYSICAL EXAMINATION: GENERAL: The patient is awake, alert, oriented times three, sitting up in the sofa, no apparent distress. HEAD AND NECK EXAM: Extraocular muscles intact. Pupils equally round and reactive to light. Mucous membranes are moist. Neck is supple. There is no jugular venous distention (JVD). CARDIOVASCULAR: S1, S2. Regular rate. No edema of the bilateral lower extremities. RESPIRATORY: Chest is clear to auscultation bilaterally. Bilateral equal air entry. No rales or rhonchi. ABDOMEN: Soft, positive bowel sounds. Nontender. No organomegaly. MUSCULOSKELETAL: No clubbing or cyanosis. Pulses are 2+. CENTRAL NERVOUS SYSTEM (BRICK TENDER): No focal deficit. Power is 5/5 in all extremities. ARTERIOVENOUS (AV) AXIS: He has a left upper arm AV fistula with positive thrill and bruit. LABORATORY REVIEW: Complete blood count (CBC) showed a WBC 7.1, hemoglobin 11.3, platelets of 126. Basic metabolic panel (BMP) showed sodium 138, potassium 4, chloride 102, bicarbonate 31, BUN 26, creatinine 3.7, calcium 8.1. CURRENT INPATIENT MEDICATIONS: The patient's medications were all reviewed by me. He is currently on intravenous (IV) Cipro and Flagyl. No other significant change in the medications today as compared with yesterday. ASSESSMENT AND PLAN: 1. End-stage renal disease. The patient's regular dialysis days are Tuesday, , Tuesday. However, he was dialyzed late last night. No urgent need of dialysis today. He will be dialyzed as per his regular schedule on Tuesday as outpatient. 2. Choledocholithiasis status post stenting of common bile duct (CBD). The patient needs to be referred to gastroenterology (GI) at [facility] for further intervention regarding removal of the stones in the CBD. 3. Atrial fibrillation. Continue current dose of digoxin. Anticoagulation will be restarted on discharge. DISPOSITION: The patient is optimized from a nephrology standpoint to be discharged home. He will be followed up as outpatient after discharge from the hospital.
--- NOTE | 2020-01-25 14:30 | ECGEPIP ---
[facility] Test Date: 2020-01-23 Pat Name: SHELLIE GILL Department: Room: [place] [address] Gender: Male Director Of Casework Department: Guru RUBIO : 1930 Requested By: JESSICA GARY Order Number: [id number] Reading MD: Gerardo Rubalcava Measurements Intervals [place] Rate: 84 P: [place]: 0 QRS: 45 QRSD: 103 T: 63 QT: 367 QTc: 434 Interpretive Statements ATRIAL FIBRILLATION NONSPECIFIC ST & T-WAVE ABNORMALITY Similar to tracing done 01-18-20 Electronically Signed on 01-25-2020 14:30:08 EST by Gerardo Rubalcava
== END 2020-01-24 15:13 | disposition home or self-care (01) | DRG 444 ==
LOC: M ED 08:15 → M ED INP 11:59 → ENRESERV 12:30 → M MSPAV 13:25 → M ICU 01-22 20:08 → M MSPAV 01-23 11:57
PROVIDERS: ADMIT Internal Medicine; ATTEND Internal Medicine
PROC: 5A1D70Z Performance of Urinary Filtration, Intermittent, Less than 6 Hours Per Day (ICD-10-PCS; 2020-01-19)
PROC: 0F798DZ Dilation of Common Bile Duct with Intraluminal Device, Via Natural or Artificial Opening Endoscopic (ICD-10-PCS; principal; 2020-01-22 16:00)
DX: K80.51 Calculus of bile duct without cholangitis or cholecystitis with obstruction (principal); N18.6 End stage renal disease; N25.81 Secondary hyperparathyroidism of renal origin; I12.0 Hypertensive chronic kidney disease with stage 5 chronic kidney disease or end stage renal disease; I25.10 Atherosclerotic heart disease of native coronary artery without angina pectoris; I48.91 Unspecified atrial fibrillation; Z79.01 Long term (current) use of anticoagulants; Z79.899 Other long term (current) drug therapy; Z88.0 Allergy status to penicillin; D63.1 Anemia in chronic kidney disease; Z87.891 Personal history of nicotine dependence; E87.5 Hyperkalemia

== ENCOUNTER → 2020-05-30 | Outpatient (CLI) | payer MEDICARE, OTHER ==
[~2020-05-30] MED LIST changes: +ACET25TA12 PO; +CIPR-249 PO; +FLAG500T PO
== END ==
LOC: M LABSMTC 10:08
PROVIDERS: ATTEND Physician Assistant
DX: Z11.59 Encounter for screening for other viral diseases (principal)
CPT/HCPCS: C9803; U0003

== ENCOUNTER → 2020-07-18 | Outpatient (CLI) | payer MEDICARE, OTHER ==
[~2020-07-18] MED LIST changes: +ISOVUE-300 61% 50ML VIAL As Ordered ONE; +LIDOCAINE 1% MDV 20ML VIAL As Ordered ONE; +MIDAZOLAM INJ 2MG/2ML VIAL (J2250 PER 1MG) As Ordered ONE; +fentaNYL 100 MCG/2 ML INJECTION (J3010) As Ordered ONE
--- NOTE | 2020-07-18 14:08 | ROOPDOC ---
[facility] Report Of Operation Report of Operation DATE OF PROCEDURE: 07/18/20 PREPROCEDURE DIAGNOSES: End-stage renal disease with increased venous pressures, pulsatility fistula, and swelling of the left upper extremity POSTPROCEDURE DIAGNOSES: Same PROCEDURE: 1. Ultrasound-guided access left brachiocephalic AV fistula 2. Fistulogram and central venogram 3. Angioplasty left cephalic vein with 8 x 20 cutting balloon and 9 x 40 [facility] Francis balloon 4. Angioplasty left cephalic vein subclavian junction with 8 x 100 [facility] Francis balloon and 9 x 40 [facility] Francis balloon 5. Angioplasty left subclavian vein at the thoracic outlet with 9 x 40 [facility] Francis balloon and 12 x 40 [facility] Francis balloon 6. Completion venogram SURGEON: Juan Daniel Amador MD ANESTHESIA: Local anesthesia 2 mL lidocaine. Moderate intravenous conscious sedation was administered by Dr. Amador. The patient was independently monitored by registered nurse assigned to the Department of radiology using automated blood pressure, EKG, and pulse oximetry. The details sedation records [place] stored in the hospital information system. The following is a brief sedation record: Start time 12:44, stop time 13:33, Versed 1.5 mg IV, fentanyl 75 g IV. CONTRAST: 40 mL Isovue-300 INDICATION FOR PROCEDURE: This is a very pleasant 89-year-old patient with end- stage renal disease currently dialyzing with a left brachiocephalic AV fistula that has become pulsatile with increased venous pressures. He also has noted an increase in swelling in the left upper extremity over the past few weeks. Risks benefits alternatives to a fistulogram potential intervention were explained to the patient and he is agreeable to proceed. Informed consent was obtained. INTERPRETATION: 1. Ultrasound was used to examine the arteriovenous fistula and it was noted to be widely patent with no flow restriction. 2. Fistulogram revealed a widely patent cephalic vein with one area over the upper bicep of approximately 80% stenosis, focal for 1 cm, then widely patent throughout the upper arm to the shoulder, but at the subclavian cephalic junction there is a 60% stenosis, and then the subclavian vein is dilated and patent until Andre's canal where there is a 75% stenosis, and then the proximal veins are widely patent. 3. After angioplasty of the cephalic vein in the mid arm, there was still significant residual stenosis and we upsized to 9 x 40 balloon. This was a resistant area to angioplasty with after multiple inflations we had less than 20% residual stenosis in a marked improvement inflow through the upper arm. No extravasation noted. 4. After angioplasty the proximal cephalic vein at the subclavian junction with multiple balloon to and inflations, there was no significant residual stenosis. 5. After angioplasty of the subclavian vein the thoracic outlet, there was significant residual stenosis and we upsized to a 12 balloon and after multiple inflations, there was less than 20% residual stenosis. This provided a dramatic improvement in outflow with significant increase in the patient's thrill over the fistula. REPORT OF OPERATION: The patient was brought to the angiographic suite in stable condition. His left upper extremity was prepped and draped in a sterile fashion. A timeout was performed. Local anesthesia was administered to the skin and subcutaneous tissue over the left cephalic vein near the AV anastomosis. Ultrasound was used to examine the AV anastomosis with color and grayscale images and it was found to be widely patent with no stenosis. We then used ultrasound to gain access to the cephalic vein and a wire was passed through this access and the needle was removed and a 4 Hungarian sheath was placed and flushed with saline. We then performed a fistulogram and central venogram, please interpretation above. We then advanced a Glidewire into the central system under fluoroscopic guidance exchanged through the sheath for a 7 Hungarian sheath and flushed the sheath with saline. We then placed glide Over the wire and exchange the wire for an O18 wire and advanced in March 10 cutting balloon across the mid cephalic vein stenosis. Multiple inflations were performed. Following this there was a moderate amount of improvement with no extravasation, but still residual stenosis. We then exchange the balloon for an 8 x 100 [facility] Francis balloon and angioplasties across the most proximal cephalic vein at the junction with the subclavian vein in the subclavian vein at the thoracic outlet. There is no real waist on the balloon the thoracic outlet, but there was at the junction. Three-minute inflation was performed. Following this there was improvement in flow through the junction, but still residual stenosis. We utilized a 12 x 40 [facility] Francis balloon to angioplasty the thoracic outlet for three-minute inflation 2, and following this there was less than 20% residual stenosis. We then exchange the balloon for 9 x 40 [facility] Francis balloon angioplasty again across the cephalic subclavian junction and again in the mid cephalic vein in the upper arm. Following both inflations for 3 minutes, there was widely patent inflow through the fistula in a marked improvement thrill. This concluded the procedure. A suture was placed in a [id number] pattern at the sheath exit site and the sheath was removed. Pressure was held for 5 minutes for good hemostasis and sterile dressings were applied. The patient tolerated the procedure well. He was then taken to recovery in stable condition. ESTIMATED BLOOD LOSS: Approximately 2 mL. COMPLICATIONS: None PLAN: It is okay to use the AV fistula for dialysis. The patient had 3 areas of significant stenosis, all very resistant to angioplasty but significantly improved after repeat angioplasty. He may require additional angioplasty in 1-2 months to help maintain patency. We would like to see him back in clinic to evaluate him in one to 2 months. We appreciate the opportunity to participate in the care of this patient. JUAN DANIEL AMADOR MD Jul 18, 2020 14:08
[2020-07-18 14:15] VITALS: BP 126/62
== END ==
LOC: M IRPRO 11:48
PROVIDERS: ATTEND Surgery Vascular Surgery
DX: T82.590A Other mechanical complication of surgically created arteriovenous fistula, initial encounter (principal); N18.6 End stage renal disease; E03.9 Hypothyroidism, unspecified; H40.9 Unspecified glaucoma
CPT/HCPCS: 36902; 36907; 99152; 99153; C1725; C1729; C1769; C1887; C1894; J1644; J2250; J3010; Q9967

== ENCOUNTER → 2020-10-09 | Outpatient (REF) | payer MEDICARE, OTHER ==
[~2020-10-09] MED LIST changes: -ISOVUE-300 61% 50ML VIAL As Ordered ONE; -LIDOCAINE 1% MDV 20ML VIAL As Ordered ONE; -MIDAZOLAM INJ 2MG/2ML VIAL (J2250 PER 1MG) As Ordered ONE; -fentaNYL 100 MCG/2 ML INJECTION (J3010) As Ordered ONE
== END ==
LOC: M LAB REF 16:30
PROVIDERS: ATTEND Surgery
DX: C44.529 Squamous cell carcinoma of skin of other part of trunk (principal)

== ENCOUNTER → 2020-10-31 | Outpatient (CLI) | payer MEDICARE, OTHER ==
[~2020-10-31] MED LIST changes: +ISOVUE-300 61% 50ML VIAL As Ordered ONE; +LIDOCAINE 1% MDV 20ML VIAL As Ordered ONE; +MIDAZOLAM INJ 2MG/2ML VIAL (J2250 PER 1MG) As Ordered ONE; +fentaNYL 100 MCG/2 ML INJECTION (J3010) As Ordered ONE
--- NOTE | 2020-10-31 16:20 | ROOPDOC ---
[facility] Report Of Operation Report of Operation DATE OF PROCEDURE: 10/31/20 PREPROCEDURE DIAGNOSES: End-stage renal disease with increased pulsatility and high venous pressures left upper extremity AV fistula POSTPROCEDURE DIAGNOSES: Same PROCEDURE: 1. Ultrasound-guided access left brachiocephalic AV fistula 2. Left upper extremity fistulogram and central venogram 3. Angioplasty left cephalic vein with 8 x 200 Polaris balloon, 10 x 80 Polaris balloon 4. Angioplasty subclavian vein with a by 200 Polaris balloon, 10 x 80 Polaris balloon, and 12 x 40 conquest balloon 5. Completion venogram SURGEON: Juan Daniel Amador MD ANESTHESIA: Local anesthesia 7 mL lidocaine. Moderate intravenous conscious sedation was administered by Dr. Amador. The patient was independently monitored by registered nurse assigned to the Department of radiology using automated blood pressure, EKG, and pulse oximetry. The details sedation record is permanently stored in the hospital information system. The following is a brief sedation record: Start time 15:02, stop time 15:47, Versed 2 mg IV, fentanyl 100 g IV. 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 He now has increased pulsatility is fistula, and increase venous pressures. We discussed the risks benefits and alternatives to a fistulogram and potential intervention use agreeable to proceed. Informed consent was obtained. INTERPRETATION: 1. Ultrasound confirmed a widely patent AV anastomosis, and images were saved. 2. The left brachiocephalic fistula is widely patent in the areas of frequent access over the bicep, but then just proximal to this there is a 60% stenosis focally in the vein, and then widely patent inflow through the upper arm. At the shoulder, near the junction with the subclavian, there is a 60% stenosis. The subclavian vein is then patent until the thoracic outlet were there is a 90% stenosis. The proximal subclavian vein into the central veins are widely patent. 3. After angioplasty of the left cephalic vein for multiple three-minute inflat ions, there is widely patent flow with no significant residual stenosis, no extravasation. 4. After angioplasty of the left subclavian vein for multiple three-minute inflations, there is widely patent inflow through with less than 20% residual stenosis at the thoracic outlet and widely patent inflow through the central veins with an improvement in thrill in the AV fistula. No extravasation noted. REPORT OF OPERATION: The patient was brought to the angiographic suite in stable condition. His left upper extremities prepped and draped in sterile fashion. A timeout was performed. Local anesthesia was administered to the skin and subcu taneous tissue over the cephalic vein near the AV anastomosis. We examined the AV anastomosis with ultrasound it was noted to be widely patent. Microneedle was used to access the vein under ultrasound guidance. A wire was passed through this access and a 4 Malian sheath was placed and flushed with saline. A Glidewire was advanced into the central system. There is a slight retrograde angle where the proximal cephalic vein meets the left subclavian vein, and ankle quite cath was used to pass the wire into the central system. There was some resistance at the thoracic outlet, but we were able to cross without much difficulty. Exchange the sheath for some Malian sheath and 8 x 200 Polaris balloon was used to angioplasty across the proximal cephalic vein and the s ubclavian vein. Three-minute inflations was performed. Following this we upsize the balloon to 10 x 80 Polaris balloon after confirming there was no extravasation. We angioplasties first the cephalic vein subclavian vein junction for three-minute inflations, we then followed this with any three-minute inflations across the thoracic outlet in the subclavian vein. Following this there was definitely an improvement in thrill but still some significant stenosis in the subclavian vein at the thoracic outlet. We upsize to high- pressure 12 x 40 conquest balloon in the subclavian vein. After three-minute inflations, there is definitely an improvement in flow through the left subclavian vein. There is a marked improvement in thrill in the fistula. We then noted still some residual stenosis at the proximal cephalic vein and the 10 x 80 balloon was replaced and another three-minute inflations was performed. We also retracted the balloon and did an angioplasty in the cephalic vein in the mid upper arm for three-minute inflations. Following this, there is a marked improvement in flow all the way through the fistula to the central system with no extravasation and no significant residual stenosis, very mild residual stenosis at the thoracic outlet. Is no extravasation. We placed a [id number] Prolene suture at the exit site of the sheath and removed the sheath. We secured the suture and sterile dressings were applied. Good hemostasis was noted the patient was taken to recovery in stable condition. He tolerated the procedure and the sedation well. ESTIMATED BLOOD LOSS: Approximately 5 mL. COMPLICATIONS: None. PLAN: Okay to use fistula for dialysis. Okay to resume home diet and medications. The patient will need closer follow-up for likely restenosis of central veins and cephalic vein. We appreciate the opportunity to participate in the care of this patient. JUAN DANIEL AMADOR MD Oct 31, 2020 16:20
[2020-10-31 16:56] VITALS: BP 121/64
== END ==
LOC: M IRPRO 13:27
PROVIDERS: ATTEND Surgery Vascular Surgery
DX: T82.590A Other mechanical complication of surgically created arteriovenous fistula, initial encounter (principal); N18.6 End stage renal disease; I12.0 Hypertensive chronic kidney disease with stage 5 chronic kidney disease or end stage renal disease; X58.XXXA Exposure to other specified factors, initial encounter
CPT/HCPCS: 36902; 36907; 99152; 99153; C1725; C1769; C1887; C1894; J1644; J2250; J3010; Q9967

== ENCOUNTER → 2020-12-19 | Outpatient (CLI) | payer MEDICARE, OTHER ==
--- NOTE | 2020-12-19 12:54 | ROOPDOC ---
[facility] Report Of Operation Report of Operation DATE OF PROCEDURE: 12/19/20 PREPROCEDURE DIAGNOSES: End-stage renal disease with pulsatility left brachiocephalic AV fistula and severe swelling left upper extremity POSTPROCEDURE DIAGNOSES: Same PROCEDURE: 1. Ultrasound-guided access left cephalic vein 2. Left upper extremity fistulogram and central venogram 3. Angioplasty left subclavian vein with 10 x 40 Hampshire balloon, 12 x 40 atlas balloon, and 14 x 40 atlas balloon 4. Angioplasty left innominate vein with 12 x 40 atlas balloon 5. Completion venogram SURGEON: Juan Daniel Amador MD ANESTHESIA: Local anesthesia for cc lidocaine. Moderate intravenous conscious sedation was administered by Dr. Amador. The patient was independently monitored by a registered nurse into the department of radiology using automated blood pressure, EKG, and pulse oximetry. A detailed sedation record is primarily stored in the hospital information system. The following is a presedation Recker: Start time 11:45, stop time 12:26, Versed 1 mg IV, fentanyl 50 g IV. CONTRAST: 65 mL Isovue-300 INDICATION FOR PROCEDURE: This is a very pleasant 89-year-old gentleman with end-stage renal disease currently dialyzing with left brachiocephalic AV fistula that has had increased pulsatility in venous pressures, increased swelling in the left upper extremity, and we suspect possible central veins stenosis. Wrist benefits and alternatives to a fistulogram and potential intervention were explained to the patient and he is agreeable to proceed. Informed consent was obtained. INTERPRETATION: 1. The left brachiocephalic AV anastomosis is widely patent on ultrasound. Images were saved. 2. 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 Distal to the near occlusion in the subclavian vein, there is a small amount of contrast and possibly a stenosis is noted in the innominate vein, but not enough contrast passes through for me to visualize this completely. The SVC is patent. 3. After angioplasty of the left subclavian vein with a 10 x 40 Hampshire balloon from, there is now luminal slow, but still considerable back up into the left axillary vein. After repeat angioplasty with a 12 x 40 atlas balloon, again we notice improve flow but still stenosis that is flow-limiting causing back up into the left axillary vein. No extravasation after either angioplasty was noted. After angioplasty with a 14 x 40 atlas balloon, there is a marked improvement in flow and an excellent thrill and the fistula. We notice much less back up into the left axillary vein. No extravasation is noted. 4. After angioplasty of the innominate vein with a 12 x 40 atlas balloon, there is rapid flow back through the to the central system. No extravasation is noted. REPORT OF OPERATION: The patient was brought to the angiographic suite in stable condition. His left upper extremity was prepped and draped in a sterile fashion. A timeout was performed. Local anesthesia was administered to the skin and subcutaneous tissue over the cephalic vein near the AV anastomosis. Ultrasound was used to examine AV anastomosis with color flow and it was noted to be widely patent. We then accessed the vein under ultrasound guidance and a wire was passed through this access and a 4 Telugu sheath was placed and flushed with saline. Fistulogram and central venogram were performed, please interpretation above. We advanced Glidewire proximally through the cephalic vein and exchanged sheath for some Telugu sheath. We then utilized to [place] catheter to try to cross through the near occlusion in the left subclavian vein. Unfortunately, initially, we kept ending up in collateral veins around the occlusion and not in the central veins themselves. Eventually, with the help of some careful contrast injections, we were able to navigate into the central system through the near occlusion and a left subclavian vein. We then angioplasties across the stenosis in the subclavian vein with a 10 x 40 Hampshire balloon for three-minute inflations. Following this, there was an improvement in flow but still significant residual stenosis and a second three-minute angioplasty was performed. Following this, we did note at least now there was a good visible lumen still significant back up into the left axillary vein. We then exchanges plan for a 12 x 40 atlas balloon and another three-minute inflations was performed. Following this, we did have an improvement in flow, but still backup and the axillary vein and still some pulsatility in the fistula. We did angioplasty across the innominate with this 12 x 40 balloon, noted a small waist, but widely patent flow after angioplasty. We exchange the balloon for a 14 x 40 atlas balloon and there was still a waist on the balloon even after the previous angioplasties, and we did three-minute inflations and following this, there was widely patent inflow through the central system, an excellent thrill in the fistula, no extravasation, and much less back up into the left axillary vein. This concluded the procedure. Local anesthesia was administered around the sheath in a [id number] Prolene suture was placed. The suture was secured is that sheath was removed and sterile dressings were applied. Pressure was held and good hemostasis was noted. The patient was then taken to recovery in stable condition. He tolerated the procedure well. ESTIMATED BLOOD LOSS: Approximately 5 mL. COMPLICATIONS: None. PLAN: It is okay to use the left AV fistula for dialysis. It is okay to resume home diet and medications. This was a very tight stenosis and difficult to cross, and the patient will likely have restenosis as this is it tough placed to maintain patency when there is such profound stenosis at the thoracic outlet. We like to see him back to check on him every few months to make sure his arm is not starting to develop swelling as this can be an indication that he is again re-stenosing the subclavian vein outflow. We appreciate the opportunity to part icipate in the care of this patient. JUAN DANIEL AMADOR MD Dec 19, 2020 12:54
[2020-12-19 13:08] VITALS: BP 143/69
== END ==
LOC: M IRPRO 09:50
PROVIDERS: ATTEND Surgery Vascular Surgery
DX: T82.590A Other mechanical complication of surgically created arteriovenous fistula, initial encounter (principal); N18.6 End stage renal disease; E78.00 Pure hypercholesterolemia, unspecified; I48.91 Unspecified atrial fibrillation; J61 Pneumoconiosis due to asbestos and other mineral fibers; X58.XXXA Exposure to other specified factors, initial encounter; Z79.01 Long term (current) use of anticoagulants; Z87.891 Personal history of nicotine dependence; Z88.0 Allergy status to penicillin; Z99.2 Dependence on renal dialysis
CPT/HCPCS: 36902; 36907; 99152; 99153; C1725; C1769; C1887; C1894; J1644; J2250; J3010; Q9967

== ENCOUNTER → 2021-01-09 | Outpatient (CLI) | payer MEDICARE, OTHER ==
[~2021-01-09] MED LIST changes: +METOPROLOL 5 MG/5 ML VIAL As Ordered ONE
--- NOTE | 2021-01-09 15:09 | ROOPDOC ---
[facility] Report Of Operation Report of Operation DATE OF PROCEDURE: 01/09/21 PREPROCEDURE DIAGNOSES: End-stage renal disease with left brachiocephalic AV fistula and left upper extremity swelling and suspected central veins stenosis POSTPROCEDURE DIAGNOSES: Same PROCEDURE: 1. Ultrasound-guided access left cephalic vein 2. Left upper extremity fistulogram and central venogram 3. Angioplasty left cephalic vein proximally with 8 x 20 cutting balloon and 8 x 100 [place] balloon 4. Angioplasty left subclavian vein and innominate vein with 10 x 80 [place] balloon, 12 x 40 atlas balloon, 14 x 40 atlas balloon. 5. Completion venogram SURGEON: Juan Daniel Amador MD ANESTHESIA: Local anesthesia 3 mL lidocaine. Moderate intravenous conscious sedation was administered by Dr. Amador. The patient was in apparently monitored by registered nurse signed at the Department of radiology using automated blood pressure, EKG, and pulse oximetry. The detailed sedation record is permanently stored in the hospital information system. The following is a brief sedation record: Start time 13:24, stop time 14:36, Versed 1.5 mg IV, fentanyl 75 g IV, Lopressor 5 mg IV. INDICATION FOR PROCEDURE: This is a very pleasant 89-year-old patient with end-stage renal disease on hemodialysis, left brachial cephalic AV fistula, now with recurrent left upper extremity swelling. He just recently had a fistulogram and angioplasty of his thoracic outlet and innominate vein a month ago, and he already has severe restenosis we suspect in the central veins again. I talked to the patient about the fact that he may not have enough room in the thoracic outlet to provide adequate outflow for his fistula in the left arm. If this is the case, we need to do a vein mapping of the right upper extremity and see if a new access could be planned, and then we could either limp along the left upper extremity access until the right upper extremity axis is ready for use, or we could place a PermCath. Either way, we will obtain a vein mapping after this procedure to see what our options are. Risks benefits alternatives to a fistulogram and potential intervention were explained to the patient. He is agreeable to proceed. Informed consent was obtained. INTERPRETATION: 1. The left brachiocephalic AV anastomosis is widely patent on ultrasound. Images were saved. 2. The left cephalic vein is widely patent through the upper arm to the shoulder. 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 Subclavian vein has an anatomic stenosis at the thoracic outlet and the vein is approximately 14 mm proximal and distal to the thoracic outlet. The innominate vein is patent with a 20-30% stenosis. The superior vena cava is widely patent. 3. After angioplasty of the proximal cephalic vein with an 8 x 20 cutting balloon and 8 x 100 [place] balloon, there is widely patent inflow with improved flow through to the subclavian vein at the junction. No extravasation noted. 4. After angioplasty of the left subclavian vein with a 10 x 80 atlas balloon, there is only a moderate improvement in flow. We dilated this up then with a 12 x 40 high-pressure balloon, and there was a moderate improvement in flow. We dilated again with a 14 x 40 atlas balloon, and following this there is definitely an improvement slow, but overall this is an anatomic stenosis and not a venous stenosis several recurrences expected. No extravasation noted. 5. After angioplasty of the innominate vein with the 10 x 80 [place] balloon, 12 x 40 atlas balloon, 14 x 40 atlas balloon, there is no significant residual stenosis noted. No extravasation noted. REPORT OF OPERATION: The patient was brought to the angiographic suite in stable condition. His left upper extremity was prepped and draped in a sterile fashion. A timeout was performed. Local anesthesia was administered to the skin and subcutaneous tissue over cephalic vein near the AV anastomosis. Ultrasound was used to examine the AV anastomosis and it was noted to be widely patent with no stenoses. Ultrasound was used to gain access with a microneedle and a wire was passed through this access. The needle was removed and a 4 Czech sheath was placed and flushed with saline. A fistulogram and central venogram were performed. Please see interpretation above. We then advanced a Glidewire into the central system. Due to the retrograde junction with the left subclavian vein from the cephalic vein, we used a [place] catheter to help his cross into the central system. A few contrast injections were performed to make sure we were not in one of the many collaterals eating back to the heart. At first, we did selected collateral, so we quickly redirected the wire with the catheter in order to be in the subclavian and innominate back to the SVC. Once we confirmed we were in the correct place, we exchange the wire through the catheter for an O18 Glidewire advantage and an 8 x 20 cutting balloon was used to angioplasty sequentially along the proximal cephalic vein. Following this, we exchange the balloon 4 and 8 x 100 [place] balloon and a three-minute inflations was performed. There is widely patent flow with improved luminal diameter following this angioplasty. We then exchange the wire back to the 035 Glidewire, and exchange the balloon for a 10 x 80 [place] balloon. I three-minute inflation was performed across the subclavian vein and across the innominate vein. Following this there was some improvement, but certainly still significant stenosis. We upsize the balloon to 12 x 40 atlas balloon and repeat angioplasty was performed for three-minute inflations in both vessels. There is no extravasation but still some residual stenosis so we upsized again to 14 x 40 atlas balloon. Following this, there is no significant residual stenosis in the innominate vein, but the left subclavian vein still had some anatomic stenosis to limitations of the thoracic outlet. However, there was a marked improvement. Flow definitely improved following this. We then gave additional local anesthesia around the sheath and placed a [id number] Prolene suture and removed the sheath. We secured the suture good hemostasis was noted. Sterile dressings were applied. The patient was then taken to recovery in stable condition. He tolerated the procedure and the sedation well. ESTIMATED BLOOD LOSS: Approximately 5 mL. COMPLICATIONS: None. PLAN: It is okay to resume home diet and medications. We will see the patient back with a vein mapping of the right upper extremity to see if there are options for new AV access. If we could place a new AV access, in the interim until it is ready for use, we can either limp along the left upper extremity AV access or ligate that if it is too problematic for the patient and place a PermCath. We will discuss options with him in clinic when he returns to discuss his vein mapping. For now, it is okay to use the fistula for dialysis. We appreciate the opportunity to participate in the care of this patient. JUAN DANIEL AMADOR MD Jan 09, 2021 15:09
[2021-01-09 15:15] VITALS: BP 118/67
== END ==
LOC: M IRPRO 11:40
PROVIDERS: ATTEND Surgery Vascular Surgery
DX: T82.590A Other mechanical complication of surgically created arteriovenous fistula, initial encounter (principal); N18.6 End stage renal disease; X58.XXXA Exposure to other specified factors, initial encounter; Z99.2 Dependence on renal dialysis
CPT/HCPCS: 36902; 36907; 99152; 99153; C1725; C1729; C1769; C1887; C1894; J1644; J2250; J3010; Q9967

== ENCOUNTER → 2021-01-30 | Outpatient (CLI) | payer MEDICARE, OTHER ==
[~2021-01-30] MED LIST changes: +LIDOCAINE W/EPINEPHRINE 1% 20ML VIAL As Ordered ONE; -METOPROLOL 5 MG/5 ML VIAL As Ordered ONE; +VANCOMYCIN 1000MG/20ML VIAL As Ordered ONE
--- NOTE | 2021-01-30 15:28 | ROOPDOC ---
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 Ultrasound-guided access right internal jugular vein 2. Placement of a 23 cm tunneled right IJ PermCath 3. Open left brachial cephalic AV fistula ligation SURGEON: Juan Daniel Amador MD ANESTHESIA: Local anesthesia 18 cc lidocaine. Moderate intravenous conscious sedation was supervised by Dr. Amador. The patient was independently monitored by registered nurse assigned to the Department of radiology using automated blood pressure, EKG, and pulse oximetry. The details sedation record is permanently stored in the hospital information system. The following is a brief sedation record: Start time 14:16, start time 15:14, Versed 1 mg IV, fentanyl 50 g IV, vancomycin 1 g IV. 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 Initially, we were able to manage the subclavian stenosis with fairly infrequent angioplasty, however, now after angioplasty restenosis occurs in a matter of weeks. This resulted in significant increased venous pressure is important dialysis, as well as significant left upper extremity swelling and severe discomfort to the patient. At this point, I think the patient needs a new access. He agrees. Therefore, today, we have discussed the risks benefits and al ternatives to a right IJ PermCath placement, open ligation of the AV fistula, and we will also plan to obtain a vein mapping of the right upper extremity so we can discuss options for new AV access at his next clinic visit after an extensive discussion with the patient he was agreeable to proceed. Informed consent was obtained. INTERPRETATION: The right IJ PermCath is in good position. There is no pneumothorax. There are no kinks in the catheter, and the tip was freely mobile at the right atrial SVC junction. It is okay to use the PermCath for dialysis. REPORT OF OPERATION: The patient was brought to the angiographic suite in stable condition. His right neck and chest were prepped and draped in sterile fashion. A timeout was performed. Sedation and antibiotics were administered without complication. Local anesthesia was administered to the skin and subcutaneous tissue the right chest and the right neck. A microneedle was used to access the jugular vein under ultrasound guidance. A wire was passed through this access under fluoroscopic guidance the needle was removed. A small incision was made at the access site with the skin knife. A micro-sheath was passed over the wire and the wire was exchanged for a J-wire. We performed 2 serial dilations over the wire using a Seldinger technique and an the peel-away sheath was placed over the wire. Next, a small incision was made on the right lateral chest just distal to the clavicle. A 23 cm PermCath was tunneled from the right chest to the jugular access site over the clavicle. The cuff was within subcutaneous tissue. We then advanced the tip of the catheter through the peel-away sheath into the central system under fluoroscopic guidance. The peel-away sheath was removed. Both ports elpidio back and flushed easily. They were heparin locked. Appropriate caps were placed. The jugular access site was irrigated and closed with deep and superficial dermal interrupted Monocryl sutures. Dermabond was placed at the skin. A Prolene sutures were used to close the exit site on the right chest and to secure the catheter in 2 places on the right chest. Sterile dressings were applied. The patient tolerated this procedure well. Next, the left upper extremity was prepped and draped in sterile fashion. Local anesthesia was administered to the skin and subcutaneous tissue over the previous incision. A small incision was made over the previous incision at the antecubital crease after mapping the fistula with ultrasound. We carefully dissected down to the cephalic vein fistula. This was skeletonized proximally and distally within are small incision. A right angle clamp was used to dissect beneath the fistula. Once we had circumferential control, a Vicryl suture was used to ligate the vein. There was still a good pulse at the radial and brachial artery and the hand was warm and pink. We anesthetized with additional anesthesia and irrigated with saline. The deep tissues were approximated with 2- 0 Vicryl suture. The dermal layer was closed with interrupted 4-0 Vicryl suture. The skin was closed with 4-0 Monocryl running subcuticular suture. Mastisol and Steri-Strips replace the length of the incision. A 4 x 4 and Tegaderm replaced as the final dressing. We placed an Yosef wrap from the hand to the axilla to help with swelling. The patient tolerated the sedation and both portions of the procedure well and was taken to recovery in stable condition. ESTIMATED BLOOD LOSS: Approximately 25 mL. COMPLICATIONS: None. PLAN: It is okay to use the PermCath for dialysis. It is okay to resume home diet and medications. We will see the patient back to discuss the results of his right upper extremity vein mapping, we will try to obtain this today before he goes home. Hopefully he has an option for a right upper extremity AV fistula. Hopefully we will not experience the same difficulty with the thoracic outlet and subclavian vein stenosis limiting outflow. We appreciate the opportunity to participate in the care of this patient. JUAN DANIEL AMADOR MD Jan 30, 2021 15:28
[2021-01-30 16:52] VITALS: BP 144/67
--- NOTE | 2021-01-30 16:52 | REP ---
INDICATION: RIGHT ARM MAPPING FOR AVF CREATION COMPARISON: None. TECHNIQUE: Real time compression and duplex Doppler evaluation of the Right upper extremity deep venous system is performed. FINDINGS: The Right jugular, axillary, brachial, basilic and cephalic veins are fully compressible where accessible with transducer pressure, and demonstrate no intraluminal thrombus and normal venous waveforms. There is no evidence of deep venous thrombosis. The right subclavian vein is not visualized due to overlying dressing and dialysis port. Right: Basilic vein size (mm)/ Cephalic vein size (mm) Upper humerus: 2/2 Lower humerus:2/2 Upper forearm: 1/2 Lower forearm/wrist: 11/21 Median cubital:11/21 Right arterial structures: Peak systolic velocity (cm/s)/waveform/size (mm) Axillary: 54/biphasic/7 Brachial: 59/biphasic/4 Radial: 75/triphasic/2 Ulnar:53/triphasic/3 IMPRESSION: No evidence of deep venous thrombosis of the Right upper extremity deep vein system. Arterial and venous sizes are given above. <Electronically signed by Lui Pinto > 01/30/21 [id number]
== END ==
LOC: M IRPRO 13:22
PROVIDERS: ATTEND Surgery Vascular Surgery
DX: T82.590A Other mechanical complication of surgically created arteriovenous fistula, initial encounter (principal); N18.6 End stage renal disease; X58.XXXA Exposure to other specified factors, initial encounter; E78.00 Pure hypercholesterolemia, unspecified; I48.91 Unspecified atrial fibrillation; Z79.01 Long term (current) use of anticoagulants; Z87.891 Personal history of nicotine dependence; Z99.2 Dependence on renal dialysis
CPT/HCPCS: 36558; 37607; 93986; 99152; 99153; C1750; C1769; C1894; J1644; J2250; J3010; J3370

== ENCOUNTER 2021-02-11 11:13 | Inpatient (IN) | payer MEDICARE, OTHER ==
[~2021-02-11] VITALS: Ht 172.7 cm; Wt 72.7 kg
[~2021-02-11 11:13] MED LIST changes: -ISOVUE-300 61% 50ML VIAL As Ordered ONE; -LIDOCAINE 1% MDV 20ML VIAL As Ordered ONE; -LIDOCAINE W/EPINEPHRINE 1% 20ML VIAL As Ordered ONE; -MIDAZOLAM INJ 2MG/2ML VIAL (J2250 PER 1MG) As Ordered ONE; -VANCOMYCIN 1000MG/20ML VIAL As Ordered ONE; -fentaNYL 100 MCG/2 ML INJECTION (J3010) As Ordered ONE
[2021-02-11] MEDS ORDERED: NS 1,000 ML IV SCH (12:15)
[2021-02-11] MEDS ORDERED: MORPHINE 4 MG/ML 1ML VIAL/SYRINGE (J2270) IV ONE (12:15)
[2021-02-11] MEDS ORDERED: ONDANSETRON 4MG/2ML VIAL IV ONE (12:15)
[2021-02-11 12:52] LABS: HEMATOCRIT 35.1 % (42.0-52.0); HEMOGLOBIN 11.2 g/dl (13.5-17.5); MEAN CORPUSCULAR HEMOGLOBIN 33.1 pg (27.0-33.0); MEAN CORPUSCULAR HGB CONC 31.9 g/dl (32.0-36.5); MEAN CORPUSCULAR VOLUME 103.8 fl (80.0-96.0); PLATELET COUNT, AUTOMATED 128 10^3/uL (150-450); RED BLOOD COUNT 3.38 10^6/uL (4.30-6.10); WHITE BLOOD COUNT 6.2 10^3/uL (4.0-10.0)
[2021-02-11 13:06] LABS: PROTHROMBIN TIME 13.4 SECONDS (12.5-14.3)
--- NOTE | 2021-02-11 13:13 | REP ---
INDICATION: edema pain COMPARISON: None. TECHNIQUE: Real time compression and duplex Doppler evaluation of the Left upper extremity deep venous system is performed. FINDINGS: No thrombus is seen in the left jugular or subclavian veins. There is nonocclusive thrombus in the left axillary vein. There is nonocclusive thrombus in the mid aspect of the cephalic vein with occlusive thrombus in the distal cephalic vein. No brachial vein thrombus is seen. IMPRESSION: Nonocclusive thrombus left axillary vein. Thrombus is also seen in the left cephalic vein. <Electronically signed by Lui Pinto > 02/11/21 [id number]
[2021-02-11 13:31] LABS: CALCIUM LEVEL 8.8 MG/DL (8.8-10.2); CREATININE FOR GFR 4.84 MG/DL (0.70-1.30); GLOMERULAR FILTRATION RATE 12.1 (>35)
[2021-02-11] MEDS ORDERED: DIGOXIN INJ 0.5 MG/2 ML AMP (J1160) IV ONE (14:30)
[2021-02-11] MEDS ORDERED: ASPIRIN 81 MG CHEW TABLET PO ONE (15:30)
[2021-02-11] MEDS ORDERED: METOPROLOL TART 50 MG TAB PO ONE (15:30)
[2021-02-11 15:37] LABS: RSV AMPLIFICATION NEGATIVE (NEGATIVE)
[2021-02-11] MEDS: METOPROLOL 5 MG/5 ML VIAL IV SCH ×3 (15:50→18:21)
[2021-02-11] MEDS ORDERED: traMADol 50 MG TAB PO PRN (17:05)
[2021-02-11] MEDS ORDERED: ACETAMINOPHEN TAB 650MG DOSE (2X325MG) PO PRN (17:05)
--- NOTE | 2021-02-11 17:13 | HPEPDOC ---
[facility] Medical History & Physical Date of Admission Feb 11, 2021 Date of Service: Feb 11, 2021 Attending Physician: Martha Bowden MD History and Physical CHIEF COMPLAINT: left upper arm pain HISTORY OF PRESENT ILLNESS: The patient is an 89-year-old male with PMH of atrial fibrillation on eliquis, end-stage renal disease on hemodialysis, hx of failure of left brachiocephalic AV fistula with recent ligation (01/30/21), hypertension, chronic hypoxic respiratory failure on home oxygen, history of asbestosis and tobacco use who presented to [facility] emergency room with the chief complaint of increased left upper extremity pain brought in by his caregiver and son, Vikas Castro. Patient had a recent ligation of LUE fistula 01/30/21 and states since then he has had increased increased LUE arm pain, increased swelling worsening even more over past several days. The patient was very groggy so his son Vikas was contacted to help with piecing history together. Yesterday, according to son, patient went to dialysis but he stopped after 2 hrs. Patient told him he had to stop it because he had left side chest pain, left arm pain. His son noticed that he has been shaking very bad over the past several days with other associated symptoms including unsteadiness on his feet, slurred speech in the AM, groggy more than normal. No facial drooping, drooling, falls, hemiparesis, n/v/d, increased SOB, fevers, chills, abdominal pain. Has been taking tylenol at home but tylenol hasn't been helping the LUE pain. The patient lives at his home alone but his son and post acute care nurse practitioner check on him daily. Family is currently in the process of getting him into [facility] or [facility]. Family thinks he is very tired and giving up. He keeps says that he wants to "go" as if he wants to . He told his son, his caregiver that he doesn't wish to continue with dialysis anymore. In the ER, VS showed HR 98-178 atrial fib with RVR, T 96.9, RR 20, 100% on 2 L NC. Patient received morphine for left upper extremity pain which led him to become more groggy, arousable when stimulated. He received a dose of digoxin, metoprolol tartrate 50 mg oral 1, IV Lopressor 5 mg 2. Heart rate improved to the 80s. Blood pressure remained stable. Chest x-ray was ordered and CT head was ordered. Left upper extremity appeared swollen but not cellulitic with +2 pitting edema. According to his son he feels as this has slightly improved but pain has worsened. Case was discussed with his drainage design coordinator who agreed with patient's admission. Doppler US: Nonocclusive thrombus left axillary vein, thrombus is also seen in the left cephalic vein. Case was also discussed with Dr. Maurice, cardiology who agreed with starting metoprolol tartrate Q8H and monitoring closely. The patient will be admitted for atrial fibrillation with rapid ventricular rate, left upper extremity swelling secondary to nonocclusive and occlusive superficial vein thromboses. REVIEW OF SYSTEMS: Neg except mentioned above PAST MEDICAL HISTORY: 1. End-stage renal disease on HD TuesThSat 2. Atrial fibrillation on Eliquis 3. Coronary artery disease? 4. Hypertension 5. Asbestosis 6. Chronic hypoxic respiratory failure on 2 L NC PAST SURGICAL HISTORY: 1. Cholecystectomy. 2. Hip surgery. 3. Fistula placement of LUE 4. Several fistula revisions of LUE 5. LUE fistula ligation SOCIAL HISTORY: Previous smoker, quit 40 years ago, smoked 1 pack per day for 20 years. Denies alcohol use. Denies drug use. Lives independently currently but trying to get into assisted living or NH. Son Vikas is his HCP, his caregiver also who lives next door. Patient does not have PCP. Cardiology-Dr. Duran, Nephrology- Dr. Lennon. FAMILY HISTORY: Both parents of DE ALLERGIES: Please see below. HOME MEDICATIONS: Please see below. PHYSICAL EXAMINATION: VS: HR 98-178, T 96.9, RR 20, 100% on 2 L NC CONSTITUTIONAL:Resting in bed, groggy from pain medication but when aroused O x 3 EYES: PERRLA, EOM intact HENT, MOUTH: Normocephalic, atraumatic, moist mucous membranes NECK: SUPPLE, no JVD, no lymphadenopathy, no carotid bruit CV:irregularly irregular rate, controlled currently, S1S2 normal, no murmurs/rubs/gallops CHEST: Right chest dialysis catheter RESPIRATORY: Clear to auscultation bilaterally, no rales/rhonchi/wheezes GI: BS positive in 4 quadrants, soft, nontender, nondistended, no rebound or guarding, no organomegaly : Deferred MUSCULOSKELETAL: +2 pitting edema in the LUE,n o erythema. + tenderness with palpation of left upper ext. ROM not tested in LUE. No cyanosis, clubbing, joint deformity. +2 pitting b/l lower extremity edema. Fistula left upper ext, good pulses INTEGUMENTARY: Intact, no rashes, no lesions, no erythema NEUROLOGIC: Slurred speech, no other obvious focal deficits but hard to assess due to grogginess LABORATORY DATA: Please see below MICROBIOLOGY: F/u UCx , blood cultures IMAGING: Follow up CXR and CT head, new echocardiogram Doppler LUE: Nonocclusive thrombus in the left axillary vein. There is nonocclusive thrombus in the mid aspect of the cephalic vein with occlusive thrombus in the distal cephalic vein. No brachial vein thrombus is seen Echocardiogram 2020: EF 55-60% 1. Study is fair technical quality, the patient is in atrial fibrillation with controlled rate. 2. Normal left ventricle (LV) size with mild LVH and preserved LV systolic function. 3. Aortic sclerosis but no significant stenosis or insufficiency. 5. Degenerative abnormalities of mitral valve but again no stenosis or insufficiency. 6. Unable to estimate central venous pressure. 7. At least moderate pulmonary hypertension. ASSESSMENT: 89-year-old male with PMH of atrial fibrillation on eliquis, end- stage renal disease on hemodialysis, hx of failure of left brachiocephalic AV fistula with recent ligation (01/30/21), hypertension, chronic hypoxic respiratory failure on home oxygen, history of asbestosis and tobacco use admitted for atrial fibrillation with rapid ventricular rate, left upper extremity swelling secondary to nonocclusive and occlusive superficial vein thromboses. PLAN: Atrial fibrillation with rapid ventricular rate -HR 90-170's in ER, currently 80's s/p digoxin, metoprolol tartrate 50 mg Po x 1, lopressor 5 mg IV x 2 -R/o infection, cardiac cause -F/u all cultures, UA, echocardiogram, digoxin level -Per son and caregiver, he is compliant with all medications at home -Discussed case with Dr. Maurice. Starting on metoprolol tartrate 25 mg Po Q8H, can increase to 50 mg PO Q8H if not enough. c/w eliquis -Tele Left upper extremity swelling secondary to nonocclusive and occlusive superficial vein thromboses -Left upper ext swelling, s/p open left brachial cephalic AV fistula ligation 01/30/[address] Amador -WBC wnl, afebrile currently, no cellulitis -Discussed with nephrology. C/w eliquis BID, elevated left upper ext, hot compress, pain control -no vascular surgery available for consult this week Increased lethargy, ? failure to thrive r/o infection -Per family, decline since placement of "chest line" for dialysis -could not tolerate full HD yesterday -F/u infectious workup, cardiac w/u -Holding off on abx treatment with no confirmed infection -NPO until more awake and alert -Will need PT/OT -Fall risk ESRD on HD -Last HD session 02/10/21, could not complete per family and patient -per family he does not wish to continue with HD -Discussed with Dr. Lennon who will see patient in the AM HTN -Stable DVT px -Eliquis DISPOSITION: Admitted to PCU for close monitoring under inpatient status. Confirmed with family (sons who are POA) he is a DNR/DNI will need to fill MOLST form out 02/12/21 with either patient or family. Vital Signs Vital Signs Date Time Temp Pulse Resp B/P (MAP) Pulse Ox O2 Delivery O2 Flow Rate FiO2 02/11/21 16:17 110 110/57 02/11/21 16:16 96 02/11/21 13:23 22 Nasal Cannula 2.0 02/11/21 11:29 96.9 Laboratory Data Labs 24H Laboratory Tests 2 02/11/21 12:42: Nucleated Red Blood Cells % (auto) 0.0, Prothrombin Time 13.4, Prothromb Time International Ratio 1.00, Anion Gap 7L, Glomerular Filtration Rate 12.1L, Calcium Level 8.8 02/11/21 14:51: Coronavirus (COVID-19)(PCR) NEGATIVE, Influenza Type A (RT-PCR) NEGATIVE, Influenza Type B (RT-PCR) NEGATIVE, Respiratory Syncytial Virus (PCR) NEGATIVE CBC/BMP Laboratory Tests 02/11/21 12:42 Home Medications Scheduled Apixaban (Eliquis) 2.5 Mg Tab, 2.5 MG PO BID Digoxin (Digoxin) 125 Mcg Tablet, 125 MCG PO 3XW EVERY // Ubidecarenone (Coq-10) 100 Mg Capsule, 100 MG PO DAILY Vit A/Vit C/Vit E/Zinc/Copper (Icaps Areds Formula Dr Tablet) 1 Each Tablet.dr, 1 TAB PO DAILY Scheduled PRN Acetaminophen/Diphenhydramine (Acetaminophen Pm Caplet) 1 Each Tablet, 1 TAB PO QHS PRN for SLEEP Allergies Coded Allergies: Penicillins (Verified Allergy, Severe, neck swelling, can't breathe, 04/19/19) A-FIB/CHADSVASC A-FIB History Current/History of A-Fib/PAF?: Yes Current PO Anticoag Therapy: Yes Age/Risk Factor Scoring CHADSVASC: CHADSVASC Response (Comments) Value Age Risk Factor Age >/= 75 years old 2 Gender Risk Factor Male 0 Hx of CHF Yes 1 Hx of HTN Yes 1 Hx of Stroke/TIA/or VTE No 0 Hx of Diabetes No 0 Hx of Vascular Disease Yes 1 Total 5 Treatment Treatment ordered: Apixaban Martha Bowden MD Feb 11, 2021 17:13
--- NOTE | 2021-02-11 17:22 | REP ---
INDICATION: atrial fib with RVR COMPARISON: 08/07/2018. TECHNIQUE: PA/Lateral FINDINGS: Lungs: Scattered diffuse interstitial fibrotic change bilaterally appears stable with no definite superimposed acute infiltrate. Heart: There is moderate cardiomegaly. Mediastinum: There is calcification and ectasia of the thoracic aorta. The mediastinal silhouette appears unremarkable otherwise. Pleural angles: There is mild chronic blunting of the costophrenic angles compatible with mild pleural thickening.. Bones and soft tissues: Unremarkable. Double-lumen central venous catheter is again noted on the right with the distal tip in the right atrium. IMPRESSION: Moderate cardiomegaly and chronic changes. No superimposed acute infiltrate. <Electronically signed by Lui Pinto > 02/11/21 [id number]
--- NOTE | 2021-02-11 17:25 | REPVR ---
PROCEDURE INFORMATION: Exam: CT Head Without Contrast Exam date and time: 02/11/2021 5:02 PM Age: 89 years old Clinical indication: Pain; Headache; Additional info: Slurred speech for 1 week per family, R/O CVA TECHNIQUE: Imaging protocol: Computed tomography of the head without contrast. Radiation optimization: All CT scans at this facility use at least one of these dose optimization techniques: automated exposure control; mA and/or kV adjustment per patient size (includes targeted exams where dose is matched to clinical indication); or iterative reconstruction. Other technique: STROKE PROTOCOL was implemented. COMPARISON: No relevant prior studies available. FINDINGS: Brain: There is age-related volume loss. There is periventricular white matter lucency consistent with chronic microvascular disease. There is no evidence of acute infarct. There is no hemorrhage or extra-axial collection. There is no mass. Cerebral ventricles: No ventriculomegaly. Bones/joints: Unremarkable. No acute fracture. Paranasal sinuses: Visualized sinuses are unremarkable. No fluid levels. Mastoid air cells: Visualized mastoid air cells are well aerated. Soft tissues: Unremarkable. IMPRESSION: 1. There is age-related volume loss and chronic microvascular disease. 2. No acute intracranial lesion or injury. ASSESSMENT: ASPECTS ([place] Stroke Program Early CT Score) is 10. Electronically signed by: Magdiel Merrill On 02/11/2021 17:25:12 PM
[2021-02-11 18:00] VITALS: BP 130/100
[2021-02-11] MEDS ORDERED: NALOXONE INJ 0.4MG/1ML VIAL (J2310 PER 1MG) IV STA ×4 (18:00→19:11)
[2021-02-11] MEDS ORDERED: NALOXONE INJ 0.4MG/1ML VIAL (J2310 PER 1MG) As Ordered ONE (18:01)
--- NOTE | 2021-02-11 20:14 | IPNPDOC ---
Subjective Date Seen The patient was seen on 02/11/21. Subjective Chief Complaint/HPI I was called at 19:46 by patient's nurse due to continued concerns about his apneic breathing. I went to assess the patient. He has been given his 4th dose of IV narcan. vitals ordered and RR 17 satting 99% on 2L NC. Patient was able to follow verbal commands, knew where he was. When asked if he was having trouble breathing, he is able to say "no." Nurse was at bedside during the examination and agrees that his mentation has improved from prior to receiving the 4th dose of Narcan. I will monitor his breathing status and mentation and will order Narcan accordingly. I was notified again at 23:43 by patient's nurse that his RR improved RR 16 and O2 saturation 96% on 2L NC. Patient is DNR/DNI and so we continued to monitor patients and will plan to give Narcan as needed if RR drops below 10. At 2:42, i received a call from the nurse that patient is pulseless. I assessed the patient and his pupils were non-reactive to light and fixed, no response on sternal rub, no pulse on palpation, no response to verbal stimuli, and no signs of r espiratory effort. I could not hear any central heart heart sounds after 5 mins of auscultation nor respiratory sounds. His extremities mildly cold to the touch. Patients family is called to inform them of the news. Assessment /Plan Plan/VTE VTE Prophylaxis Ordered?: Yes VS, I&O, 24H, Fishbone Vital Signs/I&O Vital Signs Date Time Temp Pulse Resp B/P (MAP) Pulse Ox O2 Delivery O2 Flow Rate FiO2 02/11/21 18:00 97.3 120 10 130/100 (110) 98 Nasal Cannula 02/11/21 17:45 2.0 Laboratory Data 24H LABS Laboratory Tests 2 02/11/21 12:42: Nucleated Red Blood Cells % (auto) 0.0, Prothrombin Time 13.4, Prothromb Time International Ratio 1.00, Anion Gap 7L, Glomerular Filtration Rate 12.1L, Calcium Level 8.8 02/11/21 14:51: Coronavirus (COVID-19)(PCR) NEGATIVE, Influenza Type A (RT-PCR) NEGATIVE, Influenza Type B (RT-PCR) NEGATIVE, Respiratory Syncytial Virus (PCR) NEGATIVE 02/11/21 18:39: CBC/BMP Laboratory Tests 02/11/21 12:42 Microbiology Microbiology 02/11/21 Blood Culture, Received Pending 02/11/21 Blood Culture, Received Pending Leatha Parikh DO Feb 11, 2021 20:14 JESSICA GARY MD Feb 18, 2021 05:31
[2021-02-11] MEDS ORDERED: APIXABAN 2.5 MG TAB (ELIQUIS) PO SCH (21:00)
--- NOTE | 2021-02-11 21:15 | ECGEPIP ---
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
[2021-02-11 22:00] VITALS: BP 98/55
[2021-02-11] MEDS ORDERED: METOPROLOL TART 25 MG TABLET PO SCH (22:00)
[2021-02-12] VITALS: BP 131/87
[2021-02-12] MEDS ORDERED: NALOXONE INJ 0.4MG/1ML VIAL (J2310 PER 1MG) IV STA (02:46)
--- NOTE | 2021-02-12 15:11 | DS.PDOC ---
Discharge Summary General Date of Admission Feb 11, 2021 at 15:42 Date of Discharge 02/12/21 Attending Physician: Martha Bowden MD Discharge Summary HISTORY OF PRESENT ILLNESS: The patient is an 89-year-old male with PMH of atrial fibrillation on eliquis, end-stage renal disease on hemodialysis, hx of failure of left brachiocephalic AV fistula with recent ligation (01/30/21), hypertension, chronic hypoxic respiratory failure on home oxygen, history of asbestosis and tobacco use who presented to [facility] emergency room with the chief complaint of increased left upper extremity pain brought in by his caregiver and son, Viksa Castro. Patient had a recent ligation of LUE fistula 01/30/21 and states since then he has had increased increased LUE arm pain, increased swelling worsening even more over past several days. The patient was very groggy so his son Vikas was contacted to help with piecing history together. Yesterday, according to son, patient went to dialysis but he stopped after 2 hrs. Patient told him he had to stop it because he had left side chest pain, left arm pain. His son noticed that he has been shaking very bad over the past several days with other associated symptoms including unsteadiness on his feet, slurred speech in the AM, groggy more than normal. No facial drooping, drooling, falls, hemiparesis, n/v/d, increased SOB, fevers, chills, abdominal pain. Has been taking tylenol at home but tylenol hasn't been helping the LUE pain. The patient lives at his home alone but his son and hearing care professional check on him daily. Family is currently in the process of getting him into [facility] or [facility]. Family thinks he is very tired and giving up. He keeps says that he wants to "go" as if he wants to . He told his son, his caregiver that he doesn't wish to continue with dialysis anymore. In the ER, VS showed HR 98-178 atrial fib with RVR, T 96.9, RR 20, 100% on 2 L NC. Patient received morphine for left upper extremity pain which led him to become more groggy, arousable when stimulated. ECG showed atrial fib with RVR, no ST or T wave changes. He received a dose of digoxin, metoprolol tartrate 50 mg oral 1, IV Lopressor 5 mg 2. Heart rate improved to the 80s. Blood pressure remained stable. Chest x-ray was ordered and CT head was ordered. Left upper extremity appeared swollen but not cellulitic with +2 pitting edema. According to his son he feels as this has slightly improved but pain has worsened. Case was discussed with his industrial ecology technician who agreed with patient's admission. Doppler US: Nonocclusive thrombus left axillary vein, thrombus is also seen in the left cephalic vein. Case was also discussed with Dr. Maurice, cardiology who agreed with starting metoprolol tartrate Q8H and monitoring closely. The patient will be admitted for atrial fibrillation with rapid ventricular rate, left upper extremity swelling secondary to nonocclusive and occlusive superficial vein thromboses. HOSPITAL COURSE: I was notified by nursing staff upon arrival to floor that patient was increasingly apneic, not very responsive or following commands. Upon review of meds, patient had received 4 mg IV morphine in ER. RR 10, with apneic episodes, ashened in appearance. He was given a total of four doses of 0.4 mg narcan with improvement in mental status, although still sleepy but arousable. On exam he denied chest pain, palpitations. Overnight team was called at 19:46 by patient's nurse due to continued concerns about his apneic breathing. Resident went to assess the patient. He has been given his 4th dose of IV narcan. VS: RR 17, sat urating 99% on 2L NC. Patient was able to follow verbal commands, knew where he was. When asked if he was having trouble breathing, he is able to say "no." Nurse was at bedside during the examination and agrees that his mentation has improved from prior to receiving the 4th dose of Narcan. Per their note, Dr. Parikh was notified again at 23:43 by patient's nurse that his RR improved RR 16 and O2 saturation 96% on 2L NC. They continued to monitor patients and will plan to give Narcan as needed if RR drops below 10. At 2:42 on 02/12/21 they received a call from the nurse that patient is pulseless. Night resident assessed the patient and his pupils were non-reactive to light and fixed, no response on sternal rub, no pulse on palpation, no response to verbal stimuli, and no signs of respiratory effort. They could not hear any central heart heart sounds after 5 mins of auscultation nor respiratory sounds. His extremities mildly cold to the touch. Dr. Lyons was called to assess as well and confirms the . Oksana ents family was called to inform them of the news. Time of documented as 02:40 on 02/12/21. REVIEW OF SYSTEMS: Neg except mentioned above PAST MEDICAL HISTORY: 1. End-stage renal disease on HD TuesThSat 2. Atrial fibrillation on Eliquis 3. Coronary artery disease? 4. Hypertension 5. Asbestosis 6. Chronic hypoxic respiratory failure on 2 L NC PAST SURGICAL HISTORY: 1. Cholecystectomy. 2. Hip surgery. 3. Fistula placement of LUE 4. Several fistula revisions of LUE 5. LUE fistula ligation SOCIAL HISTORY: Previous smoker, quit 40 years ago, smoked 1 pack per day for 20 years. Denies alcohol use. Denies drug use. Lives independently currently but trying to get into assisted living or NH. Son Vikas is his HCP, his caregiver also who lives next door. Patient does not have PCP. Cardiology-Dr. Duran, Nephrology- Dr. Lennon. FAMILY HISTORY: Both parents of DC ALLERGIES: Please see below. PHYSICAL EXAMINATION: not completed as I was not covering attending at time of MICROBIOLOGY: F/u UCx , blood cultures IMAGING: Follow up CXR and CT head, new echocardiogram Doppler LUE: Nonocclusive thrombus in the left axillary vein. There is nonocclusive thrombus in the mid aspect of the cephalic vein with occlusive thrombus in the distal ce phalic vein. No brachial vein thrombus is seen Echocardiogram 2020: EF 55-60% 1. Study is fair technical quality, the patient is in atrial fibrillation with controlled rate. 2. Normal left ventricle (LV) size with mild LVH and preserved LV systolic fu nction. 3. Aortic sclerosis but no significant stenosis or insufficiency. 5. Degenerative abnormalities of mitral valve but again no stenosis or insufficiency. 6. Unable to estimate central venous pressure. 7. At least moderate pulmonary hypertension. DIAGNOSES AT TIME OF : Apnea, respiratory depression possibly 2/2 to morphine administration in ER vs. natural cause with underlying CAD Atrial fibrillation with rapid ventricular rate Left upper extremity swelling secondary to nonocclusive and occlusive superficial vein thromboses Increased lethargy, ? failure to thrive r/o infection ESRD on HD CAD HTN Chronic hypoxic respiratory failure on 2 L NC ATC Asbestosis TIME SPENT ON DISCHARGE: 35minutes. Vital Signs/I&Os Vital Signs Date Time Temp Pulse Resp B/P (MAP) Pulse Ox O2 Delivery O2 Flow Rate FiO2 02/12/21 00:00 2.0 02/12/21 00:00 97.3 116 16 131/87 (102) 96 02/11/21 18:00 Nasal Cannula I&O- Last 24 Hours up to 6 AM 02/12/21 06:00 Intake Total 500 ml Output Total 0 ml Balance 500 ml Laboratory Data Labs 24H Laboratory Tests 2 02/11/21 18:39: Microbiology Microbiology 02/11/21 Blood Culture, Received Pending 02/11/21 Blood Culture, Received Pending Discharge Medications Scheduled Apixaban (Eliquis) 2.5 Mg Tab, 2.5 MG PO BID, (Reported) Digoxin (Digoxin) 125 Mcg Tablet, 125 MCG PO 3XW, (Reported) EVERY // Ubidecarenone (Coq-10) 100 Mg Capsule, 100 MG PO DAILY, (Reported) Vit A/Vit C/Vit E/Zinc/Copper (Icaps Areds Formula Dr Tablet) 1 Each Tablet.dr, 1 TAB PO DAILY, (Reported) Scheduled PRN Acetaminophen/Diphenhydramine (Acetaminophen Pm Caplet) 1 Each Tablet, 1 TAB PO QHS PRN for SLEEP, (Reported) Allergies Coded Allergies: Penicillins (Verified Allergy, Severe, neck swelling, can't breathe, 04/19/19) Martha Bowden MD Feb 12, 2021 15:11
[2021-02-13] MEDS ORDERED: DIGOXIN 0.125 MG TAB PO SCH (09:00)
== END 2021-02-12 02:41 | disposition expired | DRG 308 ==
LOC: EDBD 11:13 → M ED 11:13 → M ED INP 15:42 → ENRESERV 15:59 → M PCU 17:56
PROVIDERS: ADMIT Internal Medicine; ATTEND Internal Medicine
DX: I48.91 Unspecified atrial fibrillation (principal); N18.6 End stage renal disease; J96.11 Chronic respiratory failure with hypoxia; I82.A12 Acute embolism and thrombosis of left axillary vein; I82.612 Acute embolism and thrombosis of superficial veins of left upper extremity; I12.0 Hypertensive chronic kidney disease with stage 5 chronic kidney disease or end stage renal disease; Z79.01 Long term (current) use of anticoagulants; J61 Pneumoconiosis due to asbestos and other mineral fibers; Z87.891 Personal history of nicotine dependence; Z88.0 Allergy status to penicillin; Z79.899 Other long term (current) drug therapy